=== PATIENT | male | born 1945 | race Caucasian/White ===

== ENCOUNTER 2020-12-26 07:45 | Outpatient (REF) | payer MEDICARE, SELFPAY ==
[2020-12-26 11:56] LABS: Hematocrit 43.5 % (42-52); Hemoglobin 14.6 g/dl (14.0-18.0); Mean Corpuscular HGB Conc 33.6 g/dl (31.0-36.0); Mean Corpuscular Volume 98.4 fL (80-98); Mean Platelet Volume 11.2 fL (9.4-12.4); Platelet Count 206 X10*3/uL (160-400); Red Blood Count 4.42 X10*6/uL (4.60-5.80); Red Cell Distribution Width 12.8 % (11.0-16.0); White Blood Count 6.7 X10*3/uL (4.8-10.8)
[2020-12-26 12:03] LABS: Alanine Aminotransferase 18 U/L (0-40); Albumin Level 4.2 g/dL (3.5-5.0); Alkaline Phosphatase 62 U/L (39-117); Anion Gap 13 (12-20); Aspartate Amino Transferase 17 U/L (5-37); Bilirubin Total 1.2 mg/dL (0.0-1.0); Blood Urea Nitrogen 16 mg/dL (9-16); Calcium 9.6 mg/dL (8.4-10.2); Carbon Dioxide 27 mmol/L (22-29); Chloride 104 mmol/L (96-108); Cholesterol 130 mg/dL; Estimated Glomerular Filt Rate > 60; Glucose Fasting 102 mg/dL (60-99); HDL Cholesterol 48 mg/dL; LDL Cholesterol Calculated 67 mg/dl; Potassium 4.5 mmol/L (3.3-5.1); Sodium 139 mmol/L (135-145); Total Protein 6.8 g/dL (6.5-8.0); Triglycerides 76 mg/dL
[2020-12-26 12:37] LABS: Folate 14.9 ng/mL (> or = 4.0); Vitamin B12 626 pg/mL (200-900)
== END 2020-12-26 07:46 | disposition home or self-care (01) ==
LOC: HO.HMGCLDS 07:45
PROVIDERS: PCP Internal Medicine; Visit Provider Internal Medicine
DX: Z00.00 Encounter for general adult medical examination without abnormal findings (principal); Z12.5 Encounter for screening for malignant neoplasm of prostate; E53.8 Deficiency of other specified B group vitamins; E78.5 Hyperlipidemia, unspecified; I10 Essential (primary) hypertension
CPT/HCPCS: 36415; 80053; 80061; 82607; 82746; 84153; 85027

== ENCOUNTER 2022-04-03 08:42 | Outpatient (REF) | payer MEDICARE, SELFPAY ==
[2022-04-03 11:31] LABS: MANUAL DIFF FLAG NO
[2022-04-03 11:44] LABS: Basophils Absolute Auto 0.1 X10*3/uL (0.0-0.2); Basophils Percent Auto 0.9 % (0-2); Eosinophils Absolute Auto 0.5 X10*3/uL (0.0-0.4); Eosinophils Percent Auto 5.3 % (0-4); Hematocrit 42.2 % (42.0-52.0); Hemoglobin 13.9 g/dl (14.0-18.0); Imm Gran Abs Auto 0.02 X10*3/uL (0.00-0.03); Imm Gran Pct Auto 0.2 % (0.0-0.4); Lymphocytes Absolute Auto 1.3 X10*3/uL (1.2-4.9); Lymphocytes Percent Auto 15.2 % (20-40); Mean Corpuscular HGB Conc 32.9 g/dl (31.0-36.0); Mean Corpuscular Hemoglobin 32.6 pg (27.0-33.0); Mean Corpuscular Volume 98.8 fL (80.0-98.0); Mean Platelet Volume 11.3 fL (9.4-12.4); Monocytes Absolute Auto 0.6 X10*3/uL (0.1-1.2); Monocytes Percent Auto 7.3 % (2-11); Neutrophils Absolute Auto 6.2 x10*3/uL (2.0-8.3); Neutrophils Percent Auto 71.1 % (45-73); Platelet Count 210 X10*3/uL (160-400); Red Blood Count 4.27 X10*6/uL (4.60-5.80); Red Cell Distribution Width 13.2 % (11.0-16.0); White Blood Count 8.7 X10*3/uL (4.8-10.8)
[2022-04-03 12:02] LABS: Alanine Aminotransferase 16 U/L (0-40); Albumin Level 3.9 g/dL (3.5-5.0); Alkaline Phosphatase 65 U/L (39-117); Anion Gap 10 (12-20); Aspartate Amino Transferase 17 U/L (5-37); Blood Urea Nitrogen 14 mg/dL (9-16); Calcium 9.4 mg/dL (8.4-10.2); Carbon Dioxide 30 mmol/L (22-29); Chloride 103 mmol/L (96-108); Cholesterol 134 mg/dL; Estimated Glomerular Filt Rate > 60; Glucose Fasting 100 mg/dL (60-99); HDL Cholesterol 53 mg/dL; LDL Cholesterol Calculated 66 mg/dl; Potassium 4.2 mmol/L (3.3-5.1); Sodium 139 mmol/L (135-145); Total Protein 6.2 g/dL (6.5-8.0); Triglycerides 76 mg/dL
[2022-04-03 12:20] LABS: PSA,Total (Free>4and<10) 2.99 ng/mL (0.00-4.00)
[2022-04-03 12:32] LABS: Folate 15.8 ng/mL (> or = 4.0); Vitamin B12 475 pg/mL (200-900)
== END 2022-04-03 08:43 | disposition home or self-care (01) ==
LOC: HO.HMGCLDS 08:42
PROVIDERS: PCP Internal Medicine; Visit Provider Internal Medicine
DX: Z00.00 Encounter for general adult medical examination without abnormal findings (principal); E53.8 Deficiency of other specified B group vitamins; E78.5 Hyperlipidemia, unspecified; I10 Essential (primary) hypertension; Z12.5 Encounter for screening for malignant neoplasm of prostate
CPT/HCPCS: 36415; 80053; 80061; 82607; 82746; 84153; 85025

== ENCOUNTER 2023-03-31 10:53 | Outpatient (REF) | payer MEDICARE, SELFPAY ==
[2023-03-31 13:36] LABS: MANUAL DIFF FLAG NO
[2023-03-31 14:02] LABS: Basophils Absolute Auto 0.1 X10*3/uL (0.0-0.2); Basophils Percent Auto 0.7 % (0-2); Eosinophils Absolute Auto 0.5 X10*3/uL (0.0-0.4); Eosinophils Percent Auto 6.6 % (0-4); Hematocrit 42.6 % (42.0-52.0); Hemoglobin 14.1 g/dl (14.0-18.0); Imm Gran Abs Auto 0.02 X10*3/uL (0.00-0.03); Imm Gran Pct Auto 0.3 % (0.0-0.4); Lymphocytes Absolute Auto 1.4 X10*3/uL (1.2-4.9); Lymphocytes Percent Auto 19.9 % (20-40); Mean Corpuscular HGB Conc 33.1 g/dl (31.0-36.0); Mean Corpuscular Hemoglobin 33.5 pg (27.0-33.0); Mean Corpuscular Volume 101.2 fL (80.0-98.0); Mean Platelet Volume 11.8 fL (9.4-12.4); Monocytes Absolute Auto 0.7 X10*3/uL (0.1-1.2); Monocytes Percent Auto 9.2 % (2-11); Neutrophils Absolute Auto 4.6 x10*3/uL (2.0-8.3); Neutrophils Percent Auto 63.3 % (45-73); Platelet Count 223 X10*3/uL (160-400); Red Blood Count 4.21 X10*6/uL (4.60-5.80); White Blood Count 7.3 X10*3/uL (4.8-10.8)
[2023-03-31 14:43] LABS: PSA,Total (Free>4and<10) 2.15 ng/mL (0.00-4.00)
[2023-03-31 14:57] LABS: Folate 10.5 ng/mL (> or = 4.0); Vitamin B12 561 pg/mL (200-900)
[2023-03-31 15:05] LABS: Alanine Aminotransferase 17 U/L (0-40); Albumin Level 3.9 g/dL (3.5-5.0); Alkaline Phosphatase 75 U/L (39-117); Anion Gap 9 (12-20); Aspartate Amino Transferase 18 U/L (5-37); Bilirubin Total 0.8 mg/dL (0.0-1.0); Blood Urea Nitrogen 15 mg/dL (9-16); Calcium 9.3 mg/dL (8.4-10.2); Carbon Dioxide 29 mmol/L (22-29); Chloride 104 mmol/L (96-108); Cholesterol 133 mg/dL (<200); Estimated Glomerular Filt Rate > 60; Glucose Fasting 110 mg/dL (60-99); HDL Cholesterol 57 mg/dL (>40); LDL Cholesterol Calculated 68 mg/dL (<100); Potassium 4.4 mmol/L (3.3-5.1); Sodium 138 mmol/L (135-145); TSH reflex Free T4 1.43 uIU/mL (0.32-4.0); Total Protein 6.6 g/dL (6.5-8.0); Triglycerides 40 mg/dL (<150); Vitamin D 25-OH Total 37.7 ng/mL (>30)
== END 2023-03-31 10:54 | disposition home or self-care (01) ==
LOC: HO.HMGCLDS 10:53
PROVIDERS: PCP Internal Medicine; Visit Provider Internal Medicine
DX: Z00.00 Encounter for general adult medical examination without abnormal findings (principal); I10 Essential (primary) hypertension; E78.5 Hyperlipidemia, unspecified; E53.8 Deficiency of other specified B group vitamins; E55.9 Vitamin D deficiency, unspecified; R41.3 Other amnesia; Z12.5 Encounter for screening for malignant neoplasm of prostate
CPT/HCPCS: 36415; 80053; 80061; 82306; 82607; 82746; 84153; 84443; 85025

== ENCOUNTER 2023-04-02 08:47 | Outpatient (AMB) | payer MEDICARE, SELFPAY ==
[2023-04-02 08:56] VITALS: BP 120/80; PULSE 64; O2SAT 98; BMI 25.8
--- NOTE | 2023-04-02 08:58 | A.OFFVIS_ITS ---
Intake Vital Signs 04/02/23 08:56 04/02/23 09:04 Height 5 ft 9 in Weight 175 lb BMI 25.8 25.8 BP 120/80 Blood Pressure Location Lt brachial Position Sitting Pulse 64 Pulse Source Pulse Oximeter Pulse Oximetry (%) 98 Oxygen Delivery Method Room Air Intake Visit Reasons: SWV [id number] Allergies No Known Allergies Allergy (Verified 04/02/23 08:59) Medication List - Last Reconciled 04/02/23 by Thea Navas MD atorvastatin 20 mg PO BEDTIME latanoprost 0.005% 1 drp ophthalmic (eye) BEDTIME multivitamin 1 tab PO DAILY olmesartan 40 mg PO DAILY HPI SWV G4039 HPI Details Patient presents for annual visit. He retired last fall and has been adjusting to the snf. 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 He denies change in appetite or activity level or suicidal ideation but has been trying to find a new meaning in his life. Initiated the conversation about Advanced Directives. Advanced Directives help? patients prepare for current and future decisions about their medical treatment? and place of care. Discussed with patient that it is a process where a patients? current condition and prognosis are reviewed, their wishes for information? regarding their illness are elicited, and likely medical dilemmas are presented? and options discussed. The form can be amended as needed, reviewed yearly and? make changes as needed IPPE/AWV ? year old presents? for her ? Annual? Wellness Visit, initial visit.? Medical / Social History Reviewed? Past Medical History ?Yes? . ? [place]? of Care / Care Team list updated ?Yes . ? Surgical/Hospitalization? History ?Yes . ? Current Medications? (including OTC and supplements) ?Yes . ? Family History ?Yes? . ? Tobacco? Control form ?Yes . ? AUDIT-C (Alcohol use) form? ?Yes . ? Illicit drug use in Social? History ?Yes . ? Current diagnosis of? depression? ?No ? Appropriate PHQ2/PHQ9? completed ?Yes . ? Data entered by ?Medical? [employer] and reviewed by provider ? Fall Risk ? Fall? History? Have you had any falls with? injury in the past year? ?No . ? Have you had two or more? falls in the past year? ?No . ? Fall Risk Assessment: ?No? falls in the past year . ? HRA filled out by? the patient, reviewed by Provider and scanned. ? IPPE/AWV ? Balance? [place]? ?Yes . ? Tandem? walk ?Yes . ? Walk and? Turn ?Yes . ? Rise from? sit to stand ?Yes . ?Vision? Corrective? lens ?Yes ? Vision? screen ? Up-to-date, has an appointment [] for vision? screening and glaucoma screening ?Hearing? Whisper? test ?pass .? Initiated the conversation about Advanced Directives. Advanced Directives help? patients prepare for current and future decisions about their medical treatment? and place of care. Discussed with patient that it is a process where a patients? current condition and prognosis are reviewed, their wishes for information? regarding their illness are elicited, and likely medical dilemmas are presented? and options discussed. The form can be amended as needed, reviewed yearly and? make changes as needed Written? Plan?Completed. See Patient? Documents. [facility] Medical History Annual physical exam HTN (hypertension) Hyperlipidemia Vitamin B 12 deficiency Surgical History H/O colonoscopy Family History Father Hodgkin disease Mother No problems noted. 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/[place] Housing: House Patient Tobacco Use Status: Former Tobacco user (50 years ago) e-Cigarette/Vaping Use: Never Used Current occupational status: retired Cognitive needs: No Hearing needs: No Vision needs: No Questionnaire Medicare Wellness Checkup [age] What gender do you identify with?: male During the past 4 weeks, how much have you been bothered by emotional problems such as feeling anxious, depressed, irritable, sad or downhearted, and blue?: slightly During the past 4 weeks, has your physical & emotional health limited your social activities with family, friends, neighbors, or groups?: slightly During the past 4 weeks, how much bodily pain have you generally had?: very mild pain During the past 4 weeks, was someone available to help you if you needed & wanted help?: yes, quite a bit During the past 4 weeks, what was the hardest physical activity you could do for at least 2 minutes?: very heavy Can you get to places out of walking distance without help? (For eg., can you travel alone on buses, taxis or drive your car?): Yes Can you go shopping for groceries or clothes without someone's help?: Yes Can you prepare your own meals?: Yes Can you do your housework without help?: Yes Because of any health problems, do you need the help of another person with your personal care needs such as eating, bathing, dressing or getting around the house?: No Can you handle your own money without help?: Yes During the past 4 weeks, how would you rate your health in general?: very good During the past 4 weeks how have things been going for you?: pretty well Are you having difficulties driving your car?: no Do you always fasten your seat belt when you are in a car?: yes, usually During past 4 weeks, have you been bothered by the following: never: Falling or dizzy when standing up, Sexual problems?, Teeth or denture problems? and Problems using the telephone? and seldom: Trouble eating well? and Tiredness or fatigue? Have you fallen 2 or more times in the past year?: No Are you afraid of falling?: No Are you a smoker?: no During the past 4 weeks, how many drinks of wine, beer, or other alcoholic beverages did you have?: 10 or more per week Do you exercise for about 20 minutes 3 or more times a week?: yes, some of the time Have you been given information to help with the following?: no: Hazards in your house that might hurt you? and no: Keeping track of your medications? How often do you have trouble taking medicines the way you have been told to take them?: I seldom take medications as prescribed How confident are you that you can control & manage most of your health problems?: very confident What is your race?: White Mini Mental State Exam (MMSE) Orientation What is the (year) (season) (date) (day) (month)?: year, season, date, day and month Where are we (state) (county) (town or city) (hospital) (floor)?: state, county, town or city, hospital/clinic and floor Registration Name of 3 unrelated objects clearly and slowly, then ask patient to repeat all 3 of them. (1st repeat determines score. Make sure they can repeat all three): object 1, object 2 and object 3 Attention & Calculation (CHOOSE ONE) Spell WORLD backwards (DLROW): 5 letters Recall Ask patient to repeat the 3 items from question #3.: object 1, object 2 and object 3 Language Show patient a wristwatch & ask what it is. Repeat for pencil.: watch and pencil Ask the patient to repeat the phrase 'No ifs, ands, or buts' after you.: correct Ask the patient to 'take a piece of paper with their right hand' 'fold paper in half' 'place paper on floor': take paper in right hand, fold paper in half and place paper on floor Print the sentence 'CLOSE YOUR EYES' on a piece. If patient actually closes eyes then score.: followed written direction Give patient a blank piece of paper & ask to write a sentence. Score if it contains a noun & verb.: sentence contains subject and verb Ask patient to copy figure of intersecting pentagons exactly. Score if all 10 angles & 2 intersects are included.: all 10 angles present & 2 are intersected Score Score: 30 Activity of Daily Living Bathing - sponge bath, tub bath or shower: receives no assistance (gets in/out by self, if usual bathing means Dressing - getting clothes from closets & drawers, including inner/outer garments & fasteners.: gets clothes & gets completely dressed without help Toileting - going to the 'toilet room' for urine/bowel elimination & cleaning self/arranging clothes: goes to toilet room, cleans self, arranges clothes without help Transfer: moves in & out of bed and chair without help (may use support object) Continence: controls urination/bowel movements completely by self Feeding: feeds self without help Total Score: 0 Information obtained from: patient Using telephone: independent Traveling: independent Shopping: independent Preparing meals: independent Housework: independent Taking medicine: independent Managing money: independent PHQ-9 Over the last 2 weeks, how often have you been bothered by any of the following problems? 1. Little interest or pleasure in doing things: several days 2. Feeling down, depressed, or hopeless: several days 3. Trouble falling or staying asleep, or sleeping too much: several days 4. Feeling tired or having little energy: several days 5. Poor appetite or overeating: several days 6. Feeling bad about yourself - or that you are a failure or have let yourself or your family down: several days 7. Trouble concentrating on things, such as reading the newspaper or watching television: several days 8. Moving or speaking so slowly that other people could have noticed. Or the opposite - being so fidgety or restless that you have been moving around a lot more than usual: several days 9. Thoughts that you would be better off or of hurting yourself in some way: several days Total score: 9 Depression Screening Interpretation: Positive Depression Screening Done: Yes Source: Developed by Drs. Saleem Madrigal, Nitza Romeo, Lloyd Carmen and colleagues, with an educational terry from [email or web address]. Review of Systems Const All systems reviewed & are unremarkable except as noted in HPI and below Reports no additional complaints Eyes Reports no additional complaints ENT Reports no additional complaints Card Reports no additional complaints Resp Reports no additional complaints GI Reports no additional complaints Reports no additional complaints Physical Exam Vital Signs: Last Vital Signs Pulse 64 04/02/23 08:56 BP 120/80 04/02/23 08:56 Pulse Ox 98 04/02/23 08:56 Oxygen Delivery Method Room Air 04/02/23 08:56 BMI result Body Mass Index 25.8 Const General: comfortable HEENT Head: Yes normal to inspection Ears: hearing grossly normal bilaterally General nose exam: Normal external nose present Eyes General: appearance normal, both eyes and all related structures Neck Neck: Yes no lymphadenopathy and Yes supple Resp Effort & Inspection: normal respiratory effort Auscultation: clear to auscultation bilaterally Cardio Rhythm: regular rhythm Heart sounds: S1 normal heart sound present and S2 normal heart sound present GI Inspection: Yes normal to inspection Palpation (GI): Soft to palpation Percussion: Yes normal to percussion Auscultation: normal bowel sounds Extrem General: Yes no clubbing, cyanosis or edema Assessment & Plan Assessment & Plan (1) Hyperlipidemia: Code(s): E78.5 - Hyperlipidemia, unspecified Plan: Continue statin (2) HTN (hypertension): Code(s): I10 - Essential (primary) hypertension Plan: Continue olmesartan (3) Annual physical exam: Code(s): Z00.00 - Encounter for general adult medical examination without abnormal findings Plan: Well-balanced diet regular physical activity social interaction discussed with the patient. Follow-up in 6 months with a fasting labs before Orders: Orders Comprehensive [place]. Panel Fast 6 Months I10 - Essential (primary) hypertension Hemoglobin A1c 6 Months I10 - Essential (primary) hypertension Quality Reporting (2019) Depression/Bipolar (159/160/161/177) PHQ-9: Total score: 9 Coding Level of Care Code Medicare Subsequent (G0439) Diagnoses Hyperlipidemia E78.5 HTN (hypertension) I10 Annual physical exam Z00.00 CPT Codes Advance Care Planning - Advance Care Planning discussion: On file, no changes ([id number]) Advance Care Planning - Time spent: 1-15 minutes, on File ([id number]) Advance Care Planning Advance Care Planning discussion: On file, no changes Forms completed: Health Care Proxy Time spent: 1-15 minutes, on File
[2023-04-02 09:04] VITALS: BMI 25.8
== END 2023-04-02 09:39 | disposition home or self-care (01) ==
PROVIDERS: PCP Internal Medicine; Visit Provider Internal Medicine
DX: Z00.00 Encounter for general adult medical examination without abnormal findings (principal); E78.5 Hyperlipidemia, unspecified; I10 Essential (primary) hypertension
CPT/HCPCS: 1123F; G0439

== ENCOUNTER 2023-09-16 10:03 | Outpatient (AMB) | payer MEDICARE, SELFPAY ==
[2023-09-16 10:17] VITALS: BP 124/64; PULSE 78; O2SAT 96; BMI 26.1
--- NOTE | 2023-09-16 10:17 | A.OFFPC_ITS ---
Vital Signs 09/16/23 10:17 Height 5 ft 9 in Weight 177 lb BMI 26.1 BP 124/64 Blood Pressure Location Lt brachial Position Sitting Pulse 78 Pulse Source Pulse Oximeter Pulse Oximetry (%) 96 Oxygen Delivery Method Room Air Intake Visit Reasons: 6 Month F/U Intake Note: Pt is here today for 6 months follow up visit. Allergies No Known Allergies Allergy (Verified 09/16/23 10:17) Medication List - Last Reconciled 09/16/23 by Thea Navas MD atorvastatin 20 mg PO BEDTIME latanoprost 0.005% 1 drp ophthalmic (eye) BEDTIME multivitamin 1 tab PO DAILY olmesartan 40 mg PO DAILY Tobacco use date assessed: 09/16/23 Fall risk assessment: No Falls in past year Last assessed Fall Risk: 09/16/23 Dental Screening Dental Screen Date: 09/16/23 Did you have a dental visit in the last 12 months?: Yes Did you have a dental problem in the last 6 months where you did not have access to dental care?: No Was dental information given to patient?: Patient has dentist HPI 6 Month F/U HPI Details Pt presents for HTN and hyperlipid, stable on meds.Pt c/o intermittent constipation improved with Metamucil. Pt denies hematochezia and melena. Pt has been eating less fiber and exercising less. [facility] Medical History Vitamin B 12 deficiency Annual physical exam Hyperlipidemia HTN (hypertension) Surgical History H/O colonoscopy Family History Father Hodgkin disease Mother No problems noted. 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 How often do you have a drink containing alcohol?: 2-4 times a month 2. How many drinks containing alcohol do you have on a typical day when you are drinking?: 1 or 2 3. How often do you have six or more drinks on one occasion?: Never Total Score: 2 Review of Systems Const All systems reviewed & are unremarkable except as noted in HPI and below ENT Reports no additional complaints Resp Reports no additional complaints GI Reports no additional complaints Reports no additional complaints Musc Reports no additional complaints Physical exam (Primary Care) Vital Signs: Last Vital Signs Pulse 78 09/16/23 10:17 BP 124/64 09/16/23 10:17 Pulse Ox 96 09/16/23 10:17 Oxygen Delivery Method Room Air 09/16/23 10:17 BMI result Body Mass Index 26.1 Tobacco/Smoking Status: Tobacco use Status Tobacco use date assessed 09/16/23 09/16/23 10:18 Patient Tobacco Use Status Former Tobacco user (50 09/16/23 10:18 years ago) e-Cigarette/Vaping Use Never Used 09/16/23 10:18 Const General: no acute distress HENMT Ears: hearing grossly normal bilaterally Eyes General: appearance normal, both eyes and all related structures Resp Effort & Inspection: normal respiratory effort Auscultation: clear to auscultation bilaterally Cardio Rhythm: regular rhythm Heart sounds: S1 normal heart sound present and S2 normal heart sound present GI Inspection: Yes normal to inspection Palpation (GI): Soft to palpation Percussion: Yes normal to percussion Auscultation: normal bowel sounds Assessment and Plan Assessment & Plan (1) HTN (hypertension): Code(s): I10 - Essential (primary) hypertension Plan: cont Olmesartan (2) Hyperlipidemia: Code(s): E78.5 - Hyperlipidemia, unspecified Plan: cont Lipitor (3) Constipation: Code(s): K59.00 - Constipation, unspecified Plan: increase fiber and fluid intake , check Cologuard Orders: Referrals Cologuard Test Z12.11 - Encounter for screening for malignant neoplasm of colon, Z12.12 - Encounter for screening for malignant neoplasm of rectum Coding Level of Care Code Est Pt Level 4 (67681) Diagnoses HTN (hypertension) I10 Hyperlipidemia E78.5 Constipation K59.00
== END 2023-09-16 11:30 | disposition home or self-care (01) ==
PROVIDERS: PCP Internal Medicine; Visit Provider Internal Medicine
DX: I10 Essential (primary) hypertension (principal); E78.5 Hyperlipidemia, unspecified; K59.00 Constipation, unspecified
CPT/HCPCS: 99214

== ENCOUNTER 2023-11-12 11:05 | Outpatient (AMB) | payer MEDICARE, SELFPAY ==
[2023-11-12 11:28] VITALS: BP 106/66; PULSE 69; O2SAT 97; BMI 25.1
--- NOTE | 2023-11-12 11:28 | MHC.PC.OV ---
Vital Signs 11/12/23 11:28 Height 5 ft 9 in Weight 170 lb BMI 25.1 BP 106/66 Blood Pressure Location Lt brachial Position Sitting Pulse 69 Pulse Source Pulse Oximeter Pulse Oximetry (%) 97 Oxygen Delivery Method Room Air Intake Visit Reasons: Test Follow Up Intake Note: Pt is here todya for a follow up visit on cologuard results. Allergies No Known Allergies Allergy (Verified 11/12/23 11:42) Medication List - Last Reconciled 11/12/23 by Thea Navas MD atorvastatin 20 mg PO BEDTIME latanoprost 0.005% 1 drp ophthalmic (eye) BEDTIME multivitamin 1 tab PO DAILY olmesartan 40 mg PO DAILY Tobacco use date assessed: 09/16/23 Dental Screening Dental Screen Date: 09/16/23 HPI Test Follow Up HPI Details PATIENT PRESENTS FOR THE FOLLOW-UP OF HYPERTENSION HYPERLIPIDEMIA CONTROLLED ON CURRENT MEDICATIONS. He tested positive on Cologuard and is scheduled to have colonoscopy. He complains of constipation getting worse but denies hematochezia melena [facility] Medical History Vitamin B 12 deficiency Annual physical exam Hyperlipidemia HTN (hypertension) Surgical History H/O colonoscopy Family History Father Hodgkin disease Mother No problems noted. 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 1. Little interest or pleasure in doing things: more than half the days 2. Feeling down, depressed, or hopeless: several days 3. Trouble falling or staying asleep, or sleeping too much: several days 4. Feeling tired or having little energy: several days 5. Poor appetite or overeating: not at all 6. Feeling bad about yourself - or that you are a failure or have let yourself or your family down: several days 7. Trouble concentrating on things, such as reading the newspaper or watching television: not at all 8. Moving or speaking so slowly that other people could have noticed. Or the opposite - being so fidgety or restless that you have been moving around a lot more than usual: several days 9. Thoughts that you would be better off or of hurting yourself in some way: not at all Total score: 7 Depression Screening Interpretation: Negative Depression Screening Done: Yes 14623 - PHQ-9 Billing: Yes Source: Developed by Drs. Saleem Madrigal, Nitza Romeo, Lloyd Carmen and colleagues, with an educational terry from [employer]. Thrive Questionnaire Date Thrive assessed: 11/05/23 I am a: Patient What is your living situation today?: I have a steady place to live Within the past 12 months, did the food you bought not last and you didn't have the money to get more?: Never true Within the past 12 months, did you worry whether your food would run out before you got money to buy more?: Never true Do you have trouble paying for medicines?: No Do you have trouble getting transportation to medical appointments?: No Do you have trouble paying your heating and electricity bill?: No Do you have trouble taking care of your child, family member or friend?: No Do you have trouble with day-to-day activities such as bathing, preparing meals, shopping, managing finances, etc.?: No Are you currently unemployed and looking for a job?: No Are you interested in more education?: No Please select the resources that you would like help with: None Currently or been in a relationship where the following occur: No concerns reported THRIVE Score: 0 AUDIT C Alcohol Use Questionnaire (AUDIT-C) 1. How often do you have a drink containing alcohol?: 4 or more times a week 2. How many drinks containing alcohol do you have on a typical day when you are drinking?: 1 or 2 3. How often do you have six or more drinks on one occasion?: Never Total Score: 4 MARJORIE-7 AMB Questionnaire MARJORIE-7 Feeling nervous, anxious, or on edge: 3 = Nearly every day Not being able to stop or control worryin = Nearly every day Worrying too much about different things: 3 = Nearly every day Trouble relaxin = Nearly every day Being so restless that it is hard to sit still: 1 = Several days Becoming easily annoyed or irritable: 1 = Several days Feeling afraid as if something awful might happen: 1 = Several days Total MARJORIE-7 score (0-4 normal; 5-9 mild; 10-14 moderate; 15-21 severe): 15 Source: Developed by Drs. Saleem Madrigal, Nitza Romeo, Lloyd Carmen and colleagues, with an educational terry from [employer]. Review of Systems Const All systems reviewed & are unremarkable except as noted in HPI and below Eyes Reports no additional complaints Card Reports no additional complaints Resp Reports no additional complaints GI Reports no additional complaints Reports no additional complaints Physical exam (Primary Care) Vital Signs: Last Vital Signs Pulse 69 11/12/23 11:28 BP 106/66 11/12/23 11:28 Pulse Ox 97 11/12/23 11:28 Oxygen Delivery Method Room Air 11/12/23 11:28 BMI result Body Mass Index 25.1 Tobacco/Smoking Status: Tobacco use Status Tobacco use date assessed 09/16/23 11/12/23 11:28 Patient Tobacco Use Status Former Tobacco user (50 11/12/23 11:28 years ago) e-Cigarette/Vaping Use Never Used 11/12/23 11:28 PHQ-9: PHQ-9 Score PHQ-9: Total score 7 11/12/23 11:28 Depression Screening Interpretation: Negative Thrive Assessment: Date of Thrive Assessment Date Thrive assessed 11/05/23 11/12/23 11:28 Currently or been in a relationship where the following occur: No concerns reported Const General: no acute distress HENMT Head: Yes normal to inspection Eyes General: appearance normal, both eyes and all related structures Resp Effort & Inspection: normal respiratory effort Auscultation: clear to auscultation bilaterally Cardio Rhythm: regular rhythm Heart sounds: S1 normal heart sound present and S2 normal heart sound present GI Inspection: Yes normal to inspection Palpation (GI): Soft to palpation Percussion: Yes normal to percussion Auscultation: normal bowel sounds Assessment and Plan Assessment & Plan (1) Positive colorectal cancer screening using Cologuard test: Code(s): R19.5 - Other fecal abnormalities Plan: Patient will have colonoscopy (2) Constipation: Code(s): K59.00 - Constipation, unspecified Plan: Increasing fiber intake discussed with the patient he will try Colace followed by MiraLax as needed. (3) HTN (hypertension): Code(s): I10 - Essential (primary) hypertension Plan: Continue current medications Coding Level of Care Code Est Pt Level 4 (40280) Diagnoses Positive colorectal cancer screening using Cologuard test R19.5 Constipation K59.00 HTN (hypertension) I10
== END 2023-11-12 13:21 | disposition home or self-care (01) ==
PROVIDERS: PCP Internal Medicine; Visit Provider Internal Medicine
DX: R19.5 Other fecal abnormalities (principal); K59.00 Constipation, unspecified; I10 Essential (primary) hypertension
CPT/HCPCS: 99214

== ENCOUNTER 2024-01-13 12:46 | Outpatient (AMB) | payer MEDICARE, SELFPAY ==
[2024-01-13 12:54] VITALS: BP 116/59; PULSE 76; BMI 25.1
--- NOTE | 2024-01-13 12:54 | A.OFFVIS_ITS ---
Vital Signs 01/13/24 12:54 Height 5 ft 9 in Weight 169 lb 12.095 oz BMI 25.1 BP 116/59 L Blood Pressure Location Lt brachial Position Sitting Pulse 76 Intake Visit Reasons: positive cologuard Intake Note: Kevin presents in the office as a new patient for a Pos Cologuard. CC: He states that he has had on and off again constipation States he takes metamucil when he needs to and it seems to regulate him and takes OTC laxative but no stomach pains. Help Desk Coordinator Required: No Allergies No Known Allergies Allergy (Verified 01/13/24 13:17) HPI Comments Details: 78 y.o M with PMH who is here for positive cologuard. Pt reports changes in bowel habits that started in 2020 but worsened over the last 6 months. Noticed stools were thinner. At one point also developed severe constipation. Sometimes also has a R upper side fleeting pain. Occ has noticed blood in stool geraldine while straining. Reports fatigue, decreased stamina for around the same duration. Also thinks has lost appetite. Thinks clothes are a bit though no significant weight loss in the EMR. Last colo was 20 years ago. PCP ordered cologuard in September which was POSITIVE. No fam hx of CRC. Mat grandmother may have had stomach ca. [facility] Medical History Vitamin B 12 deficiency Annual physical exam Hyperlipidemia HTN (hypertension) Surgical History H/O colonoscopy Family History Father Hodgkin disease Mother No problems noted. 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 in [facility]/[place] Housing: House Patient Tobacco Use Status: Former Tobacco user e-Cigarette/Vaping Use: Never Used service: No Current occupational status: retired Cognitive needs: No Hearing needs: No Vision needs: No Review of Systems Const All systems reviewed & are unremarkable except as noted in HPI and below Physical Exam Vital Signs: Last Vital Signs Pulse 76 01/13/24 12:54 BP 116/59 L 01/13/24 12:54 BMI result Body Mass Index 25.1 No apparent distress Nonicteric Abdomen soft, nondistended Alert and oriented x3, normal gait Assessment & Plan Assessment & Plan (1) Unintentional weight change: Code(s): R68.89 - Other general symptoms and signs Category: Medical (2) Change in bowel habit: Code(s): R19.4 - Change in bowel habit Category: Medical (3) Fatigue: Code(s): R53.83 - Other fatigue Category: Medical (4) Positive colorectal cancer screening using Cologuard test: Code(s): R19.5 - Other fecal abnormalities Category: Medical Plan Reviewed with the pt that while cologuard not validated to be used in pts over 75 with recent change in bowel habits, needs a colo now anyway to i) follow up on cologuard and ii) evaluate change in bowel habits with unintentional weight loss. An EGD will also be booked alongside for upper GI eval given sx of low appetite, RUQ pain and fam hx of stomach ca. Plan: - EGD/colo to be booked - PEG prep Rxed and instructions reviewed - Labs ordered for prelim work up of fatigue - CT Abd/pel with IV contrast Follow up after procedures Orders: Orders Complete Blood Count no Diff Today R53.83 - Other fatigue Ferritin Today R53.83 - Other fatigue TSH reflex Free T4 Today R53.83 - Other fatigue Vitamin D 25-OH Total Today R53.83 - Other fatigue CT abdomen pelvis w IV con Today R19.4 - Change in bowel habit, R19.5 - Other fecal abnormalities, R68.89 - Other general symptoms and signs IRON PROFILE Today R53.83 - Other fatigue Medications: New peg 3350-electrolytes 236-22.74-6.74 -5.86 gram (Golytely) as per split prep instructions, until fecal effluent is clear 240 mL PO Q10M 4,000 mL 0RF colonoscopy Coding Level of Care Code New Pt Level 4 (30175) Complex EM visit Add On G2211 Diagnoses Unintentional weight change R68.89 Change in bowel habit R19.4 Fatigue R53.83 Positive colorectal cancer screening using Cologuard test R19.5
== END 2024-01-13 14:04 | disposition home or self-care (01) ==
LOC: HO.HGI 12:47
PROVIDERS: PCP Internal Medicine; Visit Provider Internal Medicine
DX: R68.89 Other general symptoms and signs (principal); R19.4 Change in bowel habit; R53.83 Other fatigue; R19.5 Other fecal abnormalities
CPT/HCPCS: 99204; G2211

== ENCOUNTER 2024-01-13 12:46 | Outpatient (REF) | payer MEDICARE, SELFPAY ==
[2024-01-13 14:39] LABS: Hematocrit 42.2 % (42.0-52.0); Mean Corpuscular HGB Conc 33.2 g/dl (31.0-36.0); Mean Corpuscular Volume 99.5 fL (80.0-98.0); Mean Platelet Volume 10.7 fL (9.4-12.4); Platelet Count 275 X10*3/uL (160-400); Red Blood Count 4.24 X10*6/uL (4.60-5.80); Red Cell Distribution Width 13.1 % (11.0-16.0); White Blood Count 9.7 X10*3/uL (4.8-10.8)
[2024-01-13 15:13] LABS: Iron 111 mcg/dL (45-160); Percent Iron Saturation 42 % (15-50); Total Iron Binding Capacity 265 mcg/dL (228-428); Unsaturated Iron Binding 154 ug/dL
[2024-01-13 15:31] LABS: Ferritin 202 ng/mL (20-250); TSH reflex Free T4 1.51 uIU/mL (0.32-4.0); Vitamin D 25-OH Total 33.9 ng/mL (>30)
== END 2024-01-13 12:47 | disposition home or self-care (01) ==
LOC: HO.LAB 12:46
PROVIDERS: PCP Internal Medicine; Visit Provider Internal Medicine
DX: R53.83 Other fatigue (principal); R68.89 Other general symptoms and signs; R19.4 Change in bowel habit; R19.5 Other fecal abnormalities
CPT/HCPCS: 36415; 82306; 82728; 83540; 84443; 85027; 99202

== ENCOUNTER 2024-03-16 13:49 | Outpatient (REF) | payer MEDICARE, SELFPAY ==
--- NOTE | ~2024-03-16 | CT_ITS ---
CLINICAL HISTORY: R19.5 - Other fecal abnormalities CT abdomen and pelvis with contrast Comparison: None Findings: The lung bases are clear. There are bilateral thin-walled homogeneous renal cortical lesions, possible Bosniak 1 cysts. Consider further evaluation with nonemergent renal ultrasound for confirmation. Solid organs are otherwise within normal limits. There is a gallstone with the gallbladder otherwise is unremarkable. There is no biliary tract dilatation. No renal stones. No bowel obstruction, pneumoperitoneum, or pneumatosis. There are diverticula in the descending and sigmoid colon without imaging evidence of diverticulitis. Pelvic contents unremarkable. Normal appendix. The bones are intact. IMPRESSION: No acute findings. This document has been electronically signed by: Warren Castillo MD on 03/18/2024 07:22:11
[2024-03-16 14:43] LABS: Anion Gap 10 (12-20); Blood Urea Nitrogen 17 mg/dL (9-16); Calcium 9.5 mg/dL (8.4-10.2); Carbon Dioxide 28 mmol/L (22-29); Chloride 108 mmol/L (96-108); Estimated Glomerular Filt Rate > 60; Glucose Random 103 mg/dL (60-115); Potassium 4.6 mmol/L (3.3-5.1); Sodium 141 mmol/L (135-145)
[2024-03-16] MEDS: Barium Sulfate Oral (Berry) 450 ML ORAL.SUSP 900 ML PO (17:01)
[2024-03-16] MEDS: iohexoL 350 MG/ML 100 ML INFUS..BTL IV (17:02)
== END 2024-03-16 13:50 | disposition home or self-care (01) ==
LOC: HO.CT 13:49
PROVIDERS: PCP Internal Medicine; Visit Provider Internal Medicine
DX: R19.5 Other fecal abnormalities (principal); R19.4 Change in bowel habit; R68.89 Other general symptoms and signs
CPT/HCPCS: 36415; 74177; 80048; Q9967

== ENCOUNTER → 2024-03-16 13:50 | Outpatient (BNV) | payer MEDICARE, SELFPAY | PROVIDERS: PCP Internal Medicine; Visit Provider Specialist | DX: R19.5 Other fecal abnormalities (principal) | CPT/HCPCS: 74177 ==

== ENCOUNTER 2024-04-08 08:57 | Outpatient (AMB) | payer MEDICARE, SELFPAY ==
[2024-04-08 08:59] VITALS: BP 110/70; PULSE 75; RESP 18; TEMP 36.5; O2SAT 97; BMI 26.0
--- NOTE | 2024-04-08 08:59 | AM.OFFVISMDC ---
Intake Vital Signs 04/08/24 08:59 Height 5 ft 9 in Weight 176 lb BMI 26.0 BP 110/70 Blood Pressure Location Rt brachial Position Sitting Respiration 18 Pulse 75 Pulse Source Pulse Oximeter Temp 97.7 F Temp Source Oral Pulse Oximetry (%) 97 Oxygen Delivery Method Room Air Intake Visit Reasons: SWV G4039 Allergies No Known Allergies Allergy (Verified 04/08/24 09:02) Medication List - Last Reconciled 04/08/24 by Thea Navas MD atorvastatin 20 mg PO BEDTIME latanoprost 0.005% 1 drp ophthalmic (eye) BEDTIME multivitamin 1 tab PO DAILY olmesartan 40 mg PO DAILY peg 3350-electrolytes 236-22.74-6.74 -5.86 gram (Golytely) 240 mL PO Q10M [zyflamend PO] HPI SWV G4039 HPI Details Initiated the conversation about Advanced Directives. Advanced Directives help? patients prepare for current and future decisions about their medical treatment? and place of care. Discussed with patient that it is a process where a patients? current condition and prognosis are reviewed, their wishes for information? regarding their illness are elicited, and likely medical dilemmas are presented? and options discussed. The form can be amended as needed, reviewed yearly and? make changes as needed IPPE/AWV ? year old presents? for her ? Annual? Wellness Visit, initial visit.? Medical / Social History Reviewed? Past Medical History ?Yes? . ? [place]? of Care / Care Team list updated ?Yes . ? Surgical/Hospitalization? History ?Yes . ? Current Medications? (including OTC and supplements) ?Yes . ? Family History ?Yes? . ? Tobacco? Control form ?Yes . ? AUDIT-C (Alcohol use) form? ?Yes . ? Illicit drug use in Social? History ?Yes . ? Current diagnosis of? depression? ?No ? Appropriate PHQ2/PHQ9? completed ?Yes . ? Data entered by ?Medical? [employer] and reviewed by provider ? Fall Risk ? Fall? History? Have you had any falls with? injury in the past year? ?No . ? Have you had two or more? falls in the past year? ?No . ? Fall Risk Assessment: ?No? falls in the past year . ? HRA filled out by? the patient, reviewed by Provider and scanned. ? IPPE/AWV ? Balance? Romberg? ?Yes . ? Tandem? walk ?Yes . ? Walk and? Turn ?Yes . ? Rise from? sit to stand ?Yes . ?Vision? Corrective? lens ?Yes ? Vision? screen ? Up-to-date, has an appointment [] for vision? screening and glaucoma screening ?Hearing? Whisper? test ?pass .? Initiated the conversation about Advanced Directives. Advanced Directives help? patients prepare for current and future decisions about their medical treatment? and place of care. Discussed with patient that it is a process where a patients? current condition and prognosis are reviewed, their wishes for information? regarding their illness are elicited, and likely medical dilemmas are presented? and options discussed. The form can be amended as needed, reviewed yearly and? make changes as needed Written? Plan?Completed. See Patient? Documents. [facility] Medical History Vitamin B 12 deficiency Annual physical exam Hyperlipidemia HTN (hypertension) Surgical History H/O colonoscopy Family History Father Hodgkin disease Mother No problems noted. 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 in [facility]/[place] Housing: House Patient Tobacco Use Status: Former Tobacco user e-Cigarette/Vaping Use: Never Used service: No Current occupational status: retired Cognitive needs: No Hearing needs: No Vision needs: No Questionnaire Medicare Wellness Checkup What [age] What gender do you identify with?: male During the past 4 weeks, how much have you been bothered by emotional problems such as feeling anxious, depressed, irritable, sad or downhearted, and blue?: slightly During the past 4 weeks, has your physical & emotional health limited your social activities with family, friends, neighbors, or groups?: slightly During the past 4 weeks, how much bodily pain have you generally had?: very mild pain During the past 4 weeks, was someone available to help you if you needed & wanted help?: yes, quite a bit During the past 4 weeks, what was the hardest physical activity you could do for at least 2 minutes?: very heavy Can you get to places out of walking distance without help? (For eg., can you travel alone on buses, taxis or drive your car?): Yes Can you go shopping for groceries or clothes without someone's help?: Yes Can you prepare your own meals?: Yes Can you do your housework without help?: Yes Because of any health problems, do you need the help of another person with your personal care needs such as eating, bathing, dressing or getting around the house?: No Can you handle your own money without help?: Yes During the past 4 weeks, how would you rate your health in general?: very good During the past 4 weeks how have things been going for you?: pretty well Are you having difficulties driving your car?: no Do you always fasten your seat belt when you are in a car?: yes, usually During past 4 weeks, have you been bothered by the following: never: Falling or dizzy when standing up, Sexual problems?, Teeth or denture problems? and Problems using the telephone? and seldom: Trouble eating well? and Tiredness or fatigue? Have you fallen 2 or more times in the past year?: No Are you afraid of falling?: No Are you a smoker?: no During the past 4 weeks, how many drinks of wine, beer, or other alcoholic beverages did you have?: 10 or more per week Do you exercise for about 20 minutes 3 or more times a week?: yes, some of the time Have you been given information to help with the following?: no: Hazards in your house that might hurt you? and no: Keeping track of your medications? How often do you have trouble taking medicines the way you have been told to take them?: I seldom take medications as prescribed How confident are you that you can control & manage most of your health problems?: very confident What is your race?: White Mini Mental State Exam (MMSE) Orientation What is the (year) (season) (date) (day) (month)?: year, season, date, day and month Where are we (state) (county) (town or city) (hospital) (floor)?: state, county, town or city, hospital/clinic and floor Registration Name of 3 unrelated objects clearly and slowly, then ask patient to repeat all 3 of them. (1st repeat determines score. Make sure they can repeat all three): object 1, object 2 and object 3 Attention & Calculation (CHOOSE ONE) Spell WORLD backwards (DLROW): 5 letters Recall Ask patient to repeat the 3 items from question #3.: object 1, object 2 and object 3 Language Show patient a wristwatch & ask what it is. Repeat for pencil.: watch and pencil Ask the patient to repeat the phrase 'No ifs, ands, or buts' after you.: correct Ask the patient to 'take a piece of paper with their right hand' 'fold paper in half' 'place paper on floor': take paper in right hand, fold paper in half and place paper on floor Print the sentence 'CLOSE YOUR EYES' on a piece. If patient actually closes eyes then score.: followed written direction Give patient a blank piece of paper & ask to write a sentence. Score if it contains a noun & verb.: sentence contains subject and verb Score Score: 29 Activity of Daily Living Bathing - sponge bath, tub bath or shower: receives no assistance (gets in/out by self, if usual bathing means Dressing - getting clothes from closets & drawers, including inner/outer garments & fasteners.: gets clothes & gets completely dressed without help Toileting - going to the 'toilet room' for urine/bowel elimination & cleaning self/arranging clothes: goes to toilet room, cleans self, arranges clothes without help Transfer: moves in & out of bed and chair without help (may use support object) Continence: controls urination/bowel movements completely by self Feeding: feeds self without help Total Score: 0 Information obtained from: patient Using telephone: independent Traveling: independent Shopping: independent Preparing meals: independent Housework: independent Taking medicine: independent Managing money: independent PHQ-9 Over the last 2 weeks, how often have you been bothered by any of the following problems? 1. Little interest or pleasure in doing things: several days 2. Feeling down, depressed, or hopeless: several days 3. Trouble falling or staying asleep, or sleeping too much: not at all 4. Feeling tired or having little energy: several days 5. Poor appetite or overeating: not at all 6. Feeling bad about yourself - or that you are a failure or have let yourself or your family down: several days 7. Trouble concentrating on things, such as reading the newspaper or watching television: not at all 8. Moving or speaking so slowly that other people could have noticed. Or the opposite - being so fidgety or restless that you have been moving around a lot more than usual: not at all 9. Thoughts that you would be better off or of hurting yourself in some way: several days Total score: 5 Depression Screening Interpretation: Negative Depression Screening Done: Yes 92368 - PHQ-9 Billing: Yes Source: Developed by Drs. Saleem Madrigal, Nitza Romeo, Lloyd Carmen and colleagues, with an educational terry from [employer]. Review of Systems Const All systems reviewed & are unremarkable except as noted in HPI and below Reports no additional complaints Eyes Reports no additional complaints ENT Reports no additional complaints Card Reports no additional complaints Resp Reports no additional complaints GI Reports no additional complaints Reports no additional complaints Musc Reports no additional complaints Physical Exam Vital Signs: Last Vital Signs Temp 97.7 F 04/08/24 08:59 Pulse 75 04/08/24 08:59 Resp 18 04/08/24 08:59 BP 110/70 04/08/24 08:59 Pulse Ox 97 04/08/24 08:59 Oxygen Delivery Method Room Air 04/08/24 08:59 BMI result Body Mass Index 26.0 Const General: no acute distress HEENT Head: Yes normal to inspection Ears: hearing grossly normal bilaterally Neck Neck: Yes no lymphadenopathy and Yes supple Resp Effort & Inspection: normal respiratory effort Auscultation: clear to auscultation bilaterally Cardio Rhythm: regular rhythm Heart sounds: S1 normal heart sound present and S2 normal heart sound present GI Inspection: Yes normal to inspection Palpation (GI): Soft to palpation Percussion: Yes normal to percussion Auscultation: normal bowel sounds Extrem General: Yes no clubbing, cyanosis or edema Assessment & Plan Assessment & Plan (1) Vitamin B 12 deficiency: Code(s): E53.8 - Deficiency of other specified B group vitamins Plan: Continue multivitamin monitor vitamin B12 level (2) Vitamin D deficiency: Code(s): E55.9 - Vitamin D deficiency, unspecified Plan: Continue vitamin-D supplement (3) Hyperlipidemia: Code(s): E78.5 - Hyperlipidemia, unspecified Plan: Continue statin (4) HTN (hypertension): Code(s): I10 - Essential (primary) hypertension Plan: Continue olmesartan (5) Annual physical exam: Code(s): Z00.00 - Encounter for general adult medical examination without abnormal findings Plan: Well-balanced diet regular physical activity discussed with the patient (6) Positive colorectal cancer screening using Cologuard test: Comment: 09/2023, f/u with GI DrTodd , will have EGD and colonoscopy 2024 Code(s): R19.5 - Other fecal abnormalities Plan: Follow-up with GI (7) Kidney cysts: Comment: on CT 03/2024, renal ultrasound scheduled by GI Code(s): N28.1 - Cyst of kidney, acquired Plan: Patient will have renal ultrasound to evaluate for renal cysts Quality Reporting (2019) Depression/Bipolar (159/160/161/177) PHQ-9: Total score: 5 Coding Level of Care Code Medicare Subsequent (G0439) Diagnoses Vitamin B 12 deficiency E53.8 Vitamin D deficiency E55.9 Hyperlipidemia E78.5 HTN (hypertension) I10 Annual physical exam Z00.00 Positive colorectal cancer screening using Cologuard test R19.5 Kidney cysts N28.1 CPT Codes Advance Care Planning - Advance Care Planning discussion: On file, no changes ([id number]) Advance Care Planning - Time spent: 1-15 minutes, on File ([id number]) Additional Codes PHQ-9 - 52517 - PHQ-9 Billing: Yes ([id number]) Advance Care Planning Advance Care Planning discussion: On file, no changes Forms completed: Health Care Proxy Time spent: 1-15 minutes, on File Did not discuss due to Cultural/Spiritual beliefs: Yes
== END 2024-04-08 09:38 | disposition home or self-care (01) ==
PROVIDERS: PCP Internal Medicine; Visit Provider Internal Medicine
DX: Z00.00 Encounter for general adult medical examination without abnormal findings (principal); E53.8 Deficiency of other specified B group vitamins; E55.9 Vitamin D deficiency, unspecified; E78.5 Hyperlipidemia, unspecified; I10 Essential (primary) hypertension; R19.5 Other fecal abnormalities; N28.1 Cyst of kidney, acquired

== ENCOUNTER → 2024-04-08 08:57 | Outpatient (BNVA) | payer MEDICARE, SELFPAY | PROVIDERS: PCP Internal Medicine; Visit Provider Internal Medicine | DX: Z00.00 Encounter for general adult medical examination without abnormal findings (principal); E53.8 Deficiency of other specified B group vitamins; E55.9 Vitamin D deficiency, unspecified; E78.5 Hyperlipidemia, unspecified; I10 Essential (primary) hypertension; R19.5 Other fecal abnormalities; N28.1 Cyst of kidney, acquired | CPT/HCPCS: 96127 ==

== ENCOUNTER → 2024-04-14 08:45 | Outpatient (BNV) | payer MEDICARE, SELFPAY | PROVIDERS: PCP Internal Medicine; Visit Provider Specialist | DX: K80.20 Calculus of gallbladder without cholecystitis without obstruction (principal); K76.0 Fatty (change of) liver, not elsewhere classified | CPT/HCPCS: 76700 ==

== ENCOUNTER 2024-06-09 09:57 | Day surgery (SDC) | payer MEDICARE, SELFPAY ==
--- NOTE | 2024-06-08 08:34 | HO.ANESPROP2 ---
Documented by User: Rubi Goel NP 06/08/24 08:34 HPI - Anesthesia Eval Consult details Narrative: 78yo M for Upper Endoscopy and Colonoscopy PMF Active Problems Active Problems: All Active Problems Kidney cysts (Acute) Gallstone (Acute) Unintentional weight change (Acute) Change in bowel habit (Acute) Fatigue (Acute) Positive colorectal cancer screening using Cologuard test (Acute) Constipation (Acute) Decline in verbal memory (Acute) Vitamin D deficiency (Acute) Vitamin B 12 deficiency (Acute) Hyperlipidemia (Acute) HTN (hypertension) (Acute) Annual physical exam (Acute) Past Medical History Medical History Vitamin B 12 deficiency Annual physical exam Hyperlipidemia HTN (hypertension) Family History Family History Father Hodgkin disease Mother No problems noted. 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[facility]/[place] Housing: House Patient Tobacco Use Status: Former Tobacco user e-Cigarette/Vaping Use: Never Used Use of substances other than those prescribed or required for medical reasons: No Advance Directives: No Advance Directives Information Provided: Yes service: No Current occupational status: retired Cognitive needs: No Hearing needs: No Vision needs: No Meds Allergies Allergy/AdvReac Type Severity Reaction Status Date / Time No Known Allergies Allergy Verified 06/09/24 10:38 Home Medications ?Medication ?Instructions ?Recorded ?Confirmed ?Last Taken ?Type multivitamin 1 tab PO DAILY 12/13/20 06/09/24 Unknown History latanoprost 0.005 % eye drops 1 drp ophthalmic (eye) BEDTIME 09/10/22 06/09/24 Unknown History zyflamend PO 01/13/24 04/08/24 Unknown History Assessment and Plan Assessment Anesthesia Assessment: Chart Reviewed Documented by User: Marciano Tsang MD 06/09/24 12:06 PMF Past Medical History Medical History Vitamin B 12 deficiency Annual physical exam Hyperlipidemia HTN (hypertension) Family History Family History Father Hodgkin disease Mother No problems noted. 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[place] Housing: House Patient Tobacco Use Status: Former Tobacco user e-Cigarette/Vaping Use: Never Used Use of substances other than those prescribed or required for medical reasons: No Advance Directives: No Advance Directives Information Provided: Yes service: No Current occupational status: retired Cognitive needs: No Hearing needs: No Vision needs: No Meds Allergies Allergy/AdvReac Type Severity Reaction Status Date / Time No Known Allergies Allergy Verified 06/09/24 10:38 Home Medications ?Medication ?Instructions ?Recorded ?Confirmed ?Last Taken ?Type multivitamin 1 tab PO DAILY 12/13/20 06/09/24 Unknown History latanoprost 0.005 % eye drops 1 drp ophthalmic (eye) BEDTIME 09/10/22 06/09/24 Unknown History zyflamend PO 01/13/24 04/08/24 Unknown History Exam Airway Mallampati Class: II TM Dist: >3cm Neck ROM: Full Assessment and Plan Assessment Anesthesia Assessment: Anesthesia Plan Discussed Final Anesthetic Review Family History of Problems with Anesthesia: No History of Problems with Anesthesia: No NPO: Yes ASA Class: II Final Preanesthetic Review: No Changes in Pt Med Stat, Meds/Allgs Chart Reviewed, Consent Obtained/Reviewed and Anes Risks/Benef Reviewed Patient Risk: Intermediate Procedure Risk: Low Anesthetic Plan Anesthetic Plan: TIVA Disposition: Standard PACU
[2024-06-09] VITALS (8 sets, daily range): BP systolic 84–140; BP diastolic 48–84; PULSE 73–82; RESP 14–20; TEMP 36.2–36.7; O2SAT 96–98; BMI 25.3
[2024-06-09] MEDS: Lactated Ringers 1,000 ML 100 ML IVCONT (10:39)
--- NOTE | 2024-06-09 10:39 | MHC.SHP ---
Pre-Procedural Eval Section A - 24 Hr Update-Section A only Date of Service: 06/09/24 Section B - Complete if H&P > 30 days Chief Complaint: Other fecal abnormalities, change in bowel habits, Details of Present Illness: PMH: Hyperlipidemia HTN (hypertension) Present Medications: see Short Stay Collaborative assessment Allergies: Allergies Allergy/AdvReac Type Severity Reaction Status Date / Time No Known Allergies Allergy Verified 06/09/24 10:38 Review of Systems Review of Systems Comment: Ten point ROS negative Exam Exam Comment: Gen appear: No acute distress HEENT: no icterus Chest: No overt resp distress Abd: soft, nontender, nondistended Psych: Stable affect, answering questions appropriately Neuro: A/Ox3 noted to move all extremities spontaneously Ext: no peripheral edema Plan Diagnosis/Plan: Unchanged I have reviewed the history and physical and performed a pertinent physical examination on my patient. No changes have occurred unless specified. Time Spent With Patient Time: Total time managing care of this patient today ____ minutes.
--- NOTE | 2024-06-09 11:50 | P.OPN-COLO_ITS ---
Colonoscopy Operative Note Operative Note Date of Service: 06/09/24 Narrative: Procedure: Upper endoscopy and colonoscopy Indication: Positive cologuard, change in bowel habits Endoscopist: Rhonda Brooks MD Anesthesia Provider: Dr Marciano Tsang Anesthesia type: MAC Instrument: [id number] and [id number] EGD Procedure:?? The procedure, indications, preparation and potential complications were reviewed with the patient, who indicated understanding and gave written informed consent to proceed. The endoscope was introduced through the mouth, and advanced to the 2nd part of the duodenum. The mucosa was carefully examined on slow withdrawal of the endoscope. The patient tolerated the procedure well. There were no immediate complications.? EGD Findings:? * Esophagus:? The Z-line was at 41 cm. There was a 8 mm ulcer just under the Z line with pigment spot. Cold forceps biospies were taken from the edge of the ulcer. * Stomach:? Large paraesophageal hernia with small erosions noted in the herniated fundus. Erythema and erosions in the antrum. Retroflexion was performed in the cardia with good visualization of the GEJ ulcer as described above. Cold forceps biopsies were taken from the antrum and body of the stomach. * Duodenum:? Normal duodenal mucosa. Cold forceps biopsies were taken from the duodenal bulb and 2nd portion of the duodenum to rule out celiac sprue. Colonoscopy Procedure:? The patient was then turned for the colonoscopy. A digital rectal exam was performed which was abnormal for external hemorrhoids.? A distal attachment cap was affixed to the tip of the scope and the colonoscope was then inserted through the anus and advanced through the colon and advanced to the cecum at 75 cm and terminal ileum.? Appendiceal orifice and ileocecal valve were identified. Mucosa was carefully examined under high definition white light as the instrument was slowly withdrawn in a retrograde panoramic fashion. Retroflexion was performed in ascending colon and rectum. The procedure was not difficult. The quality of the prep was BBPS: 3+2+3 = adequate Withdrawal time 14 minutes Limitations: No limitations Findings: Mucosa: Normal colon mucosa. Cold forceps biopsies were taken right and left side of the colon to rule out microscopic colitis. The terminal ileum could only be intubated superficially due to looping of scope vs ?? stricture. Protruding lesions: * 1 pedunculated polyp of size 12 mm in descending colon. Hot snare polypectomy was performed. The polyp was completely removed and retrieved. * Medium internal hemorrhoids without stigmata of recent bleeding. Excavated lesions: * Diffuse diverticulosis of left side of the colon and few diverticula in the right side of the colon. Impression: 1. GE junction ulcer (biopsy) 2. Angelo erosions 3. Antral gastritis (biopsy) 4. Normal duodenum (biopsy) 5. Normal colon and terminal ileum mucosa (biopsy) 6. One polyp removed 7. Diverticulosis 8. Internal and external hemorrhoids Recommendations:?? * Follow-up path results * Start omeprazole 20 BID x 8-12 weeks and then once daily * Repeat EGD to be booked in a few months to assess for healing of the ulcer * CT enterography recommended for small bowel evaluation * Repeat colonoscopy in 3 years for polyp surveillance is optional, if pt in good health
--- NOTE | 2024-06-09 13:03 | PC.NURSE ---
IVF were double documented in MAR and in I&O. Adjustment made to Input/Output on worklist. Total amount of IVF received pooja/intraop was 1000 ml.
== END 2024-06-09 13:22 | disposition home or self-care (01) ==
PROVIDERS: PCP Internal Medicine; Visit Provider Internal Medicine
PROC: (CPT 45385; principal; 2024-06-09 12:00)
DX: K63.5 Polyp of colon (principal); K57.30 Diverticulosis of large intestine without perforation or abscess without bleeding; K64.8 Other hemorrhoids; R19.5 Other fecal abnormalities; R19.4 Change in bowel habit; K25.9 Gastric ulcer, unspecified as acute or chronic, without hemorrhage or perforation; K22.10 Ulcer of esophagus without bleeding; K29.60 Other gastritis without bleeding; K44.9 Diaphragmatic hernia without obstruction or gangrene; R63.4 Abnormal weight loss; Z68.25 Body mass index [BMI] 25.0-25.9, adult; R53.83 Other fatigue; I10 Essential (primary) hypertension; E78.5 Hyperlipidemia, unspecified; E53.8 Deficiency of other specified B group vitamins; E55.9 Vitamin D deficiency, unspecified; N28.1 Cyst of kidney, acquired; Z87.891 Personal history of nicotine dependence; Z79.899 Other long term (current) drug therapy
CPT/HCPCS: 45385; 45380; 43239; 88305; 88313; 88342; J2003; J2371; J2704

== ENCOUNTER → 2024-06-09 09:57 | Outpatient (BNV) | payer MEDICARE, SELFPAY | PROVIDERS: PCP Internal Medicine; Visit Provider Internal Medicine | DX: Z12.11 Encounter for screening for malignant neoplasm of colon (principal); R19.5 Other fecal abnormalities; D12.4 Benign neoplasm of descending colon; K57.30 Diverticulosis of large intestine without perforation or abscess without bleeding; R63.0 Anorexia; R63.4 Abnormal weight loss; K28.9 Gastrojejunal ulcer, unspecified as acute or chronic, without hemorrhage or perforation; K29.70 Gastritis, unspecified, without bleeding | CPT/HCPCS: 43239; 45385 ==

== ENCOUNTER 2024-06-29 09:31 | Outpatient (AMB) | payer MEDICARE, SELFPAY ==
--- NOTE | 2024-06-29 09:44 | A.OFFVIS_ITS ---
Vital Signs 06/29/24 09:56 Height 5 ft 9 in Weight 180 lb 12.465 oz BMI 26.7 BP 174/80 H Blood Pressure Location Lt brachial Position Sitting Pulse 60 Intake Visit Reasons: Post op egd/colo visit Intake Note: Kevin presents in the office as a follow up for his EGD and COLO. CC: He states that he is just here for results - not having any concerns. CT scan orders 07/14. 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 Pt reports changes in bowel habits that started in 2020 but worsened over the last 6 months. Noticed stools were thinner. At one point also developed severe constipation. Sometimes also has a R upper side fleeting pain. Occ has noticed blood in stool geraldine while straining. Reports fatigue, decreased stamina for around the same duration. Also thinks has lost appetite. Thinks clothes are a bit though no significant weight loss in the EMR. Last colo was 20 years ago. PCP ordered cologuard in September which was POSITIVE. No fam hx of CRC. Mat grandmother may have had stomach ca. 06/15/24: 1. GE junction ulcer (biopsy) 2. Angelo erosions 3. Antral gastritis (biopsy) 4. Normal duodenum (biopsy) 5. Normal colon and terminal ileum mucosa (biopsy) 6. One polyp removed 7. Diverticulosis 8. Internal and external hemorrhoids Path: A. Duodenum, biopsy: Duodenal mucosa within normal limits. B. Stomach, antrum, biopsy: Scant small fragment of fibrous tissue; no gastric tissue identified. C. Stomach, body, biopsy: Oxyntic mucosa with mild chronic inactive inflammation; no Helicobacter organisms seen. D. GE junction, edge of ulcer, biopsy: - Cardiac-type mucosa with mild chronic inactive inflammation and surface hyperplastic changes; no intestinal metaplasia seen. - Active esophagitis (neutrophils). E. Colon, right, biopsy: Colonic mucosa within normal limits. F. Colon, left, biopsy: Colonic mucosa within normal limits. G. Colon, descending, polypectomy: Traditional serrated adenoma with high-grade dysplasia; multiple additional levels examined 06/29/24: Here for follow up. Results already sent over the portal and pt has no questions. Pt reports stools are actually more regular now, caliber fine. No blood in stools. See above - CTE ordered for ? IC narrowing noted on colo. Willa 07/14. [facility] Medical History (Updated 06/29/24 @ 16:20 by Rhonda Brooks MD) Vitamin B 12 deficiency Annual physical exam Hyperlipidemia HTN (hypertension) Surgical History (Updated 06/29/24 @ 09:57 by SUJATHA Peterson) History of esophagogastroduodenoscopy (EGD) H/O colonoscopy Family History Father Hodgkin disease Mother No problems noted. 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 in [facility]/[place] Housing: House Patient Tobacco Use Status: Former Tobacco user e-Cigarette/Vaping Use: Never Used service: No Current occupational status: retired Cognitive needs: No Hearing needs: No Vision needs: No Review of Systems Const All systems reviewed & are unremarkable except as noted in HPI and below Physical Exam Vital Signs: Last Vital Signs Pulse 60 06/29/24 09:56 BP 174/80 H 06/29/24 09:56 BMI result Body Mass Index 26.7 No apparent distress Nonicteric Abdomen soft, nondistended Alert and oriented x3, normal gait Assessment & Plan Assessment & Plan (1) Ulcer, esophagus: Code(s): K22.10 - Ulcer of esophagus without bleeding Category: Medical (2) Personal history of colonic polyps: Code(s): Z86.0100 - Personal history of colon polyps, unspecified Category: Medical (3) Serrated polyp of colon: Code(s): K63.5 - Polyp of colon Category: Medical (4) Ileocecal valve stenosis: Code(s): K63.89 - Other specified diseases of intestine Plan 1. Esophagitis with esophageal ulcer. Continues on b.i.d. omeprazole. This is to be continued for 8-12 weeks, and then can reduce to once daily. He is aware that he will need a repeat endoscopy to assess for healing and rule out underlying Sims's. Appointment for EGD is pending. 2. Patient with serrated adenoma with high-grade dysplasia on colonoscopy. Likely reason for positive Cologuard. Since this was removed en-bloc, he will need a repeat colonoscopy in 3 years. 3. Ileocecal valve could not be intubated completely during the colonoscopy, ? From looping of the colon versus IC narrowing. CT enterography ordered for further evaluation. This is scheduled for 07/14. Follow-up after EGD Coding Level of Care Code Est Pt Level 4 (17257) Diagnoses Ulcer, esophagus K22.10 Personal history of colonic polyps Z86.0100 Serrated polyp of colon K63.5 Ileocecal valve stenosis K63.89
[2024-06-29 09:56] VITALS: BP 174/80; PULSE 60; BMI 26.7
== END 2024-06-29 11:37 | disposition home or self-care (01) ==
LOC: HO.HGI 09:32
PROVIDERS: PCP Internal Medicine; Visit Provider Internal Medicine
DX: K22.10 Ulcer of esophagus without bleeding (principal); Z86.0100 Personal history of colon polyps, unspecified; K63.5 Polyp of colon; K63.89 Other specified diseases of intestine
CPT/HCPCS: 99214

== ENCOUNTER → 2024-06-29 09:31 | Outpatient (BNVA) | payer MEDICARE, SELFPAY | PROVIDERS: PCP Internal Medicine; Visit Provider Internal Medicine | DX: K22.10 Ulcer of esophagus without bleeding (principal); K63.5 Polyp of colon; R10.11 Right upper quadrant pain; K63.89 Other specified diseases of intestine; Z86.0100 Personal history of colon polyps, unspecified | CPT/HCPCS: 99212 ==

== ENCOUNTER 2024-08-30 09:00 | Outpatient (REF) | payer MEDICARE, SELFPAY ==
--- NOTE | ~2024-08-30 | CT_ITS ---
CLINICAL HISTORY: R19.4 - Change in bowel habit CT abdomen and pelvis with contrast Comparison: CT/SR - CT ABDOMEN PELVIS W IV CON - 03/16/24 16:23 EST Findings: The lung bases are clear. Cholelithiasis. Bilateral renal cysts right more than left measuring up to 4 cm. Remainder of the solid organs are within normal limits. No urolithiasis. No hydronephrosis. 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 Moderate solid stool is noted within the ascending and transverse colon. The descending colon is mostly contracted. Moderate diverticulosis of the sigmoid colon without evidence of diverticulitis. Pelvic contents unremarkable. Normal appendix. The bones are intact. 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 Moderate stool burden within the ascending and transverse colon, may represent chronic constipation. Moderate sigmoid colon diverticulosis without evidence of acute diverticulitis. Cholelithiasis. Bilateral renal cysts measuring up to 4 cm. This document has been electronically signed by: Julianne Ch MD on 08/30/2024 23:01:09
[2024-08-30] MEDS: iohexoL 350 MG/ML 100 ML INFUS..BTL IV (10:29)
[2024-08-30] MEDS: Sorbitol/Mannit/Xanth Imaging 500 ML LIQUID 1500 ML PO (10:30)
[2024-08-31 11:18] LABS: Creatinine POC 1.2 mg/dL (0.5-1.4); GFR POC > 60
== END 2024-08-30 09:01 | disposition home or self-care (01) ==
LOC: HO.CT 09:00
PROVIDERS: PCP Internal Medicine; Visit Provider Internal Medicine
DX: R19.4 Change in bowel habit (principal); R19.5 Other fecal abnormalities
CPT/HCPCS: 74177; 82565; Q9967

== ENCOUNTER → 2024-08-30 09:02 | Outpatient (BNV) | payer MEDICARE, SELFPAY | PROVIDERS: PCP Internal Medicine; Visit Provider Student in an Organized Health Care Education/Training Program | DX: N28.1 Cyst of kidney, acquired (principal) | CPT/HCPCS: 74177 ==

== ENCOUNTER 2024-09-08 06:51 | Day surgery (SDC) | payer MEDICARE, SELFPAY ==
[2024-09-06 16:16] VITALS: BMI 26.7
--- NOTE | 2024-09-07 09:21 | P.CONAN_ITS ---
Documented by User: Rubi Goel NP 09/07/24 09:22 HPI - Anesthesia Eval Consult details Narrative: 79yo M for Upper Endoscopy s/p EGD and Burden 06/2024 with TIVA PMFSH Active Problems Active Problems: All Active Problems Serrated polyp of colon (Acute) Personal history of colonic polyps (Acute) Ulcer, esophagus (Acute) Kidney cysts (Acute) Gallstone (Acute) Unintentional weight change (Acute) Change in bowel habit (Acute) Fatigue (Acute) Positive colorectal cancer screening using Cologuard test (Acute) Constipation (Acute) Decline in verbal memory (Acute) Vitamin D deficiency (Acute) Vitamin B 12 deficiency (Acute) Hyperlipidemia (Acute) HTN (hypertension) (Acute) Annual physical exam (Acute) Past Medical History Medical History Vitamin B 12 deficiency Annual physical exam Hyperlipidemia HTN (hypertension) Family History Family History Father Hodgkin disease Mother No problems noted. 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[facility]/[place] Housing: House Patient Tobacco Use Status: Former Tobacco user e-Cigarette/Vaping Use: Never Used Use of substances other than those prescribed or required for medical reasons: No Are you DNR?: No Advance Directives: No Advance Directives Information Provided: Yes service: No Current occupational status: retired Cognitive needs: No Hearing needs: No Vision needs: No Meds Allergies Allergy/AdvReac Type Severity Reaction Status Date / Time No Known Allergies Allergy Verified 09/08/24 07:28 Home Medications ?Medication ?Instructions ?Recorded ?Confirmed ?Last Taken ?Type multivitamin 1 tab PO DAILY 12/13/20 07/0 05/31 Unknown History latanoprost 0.005 % eye drops 1 drp ophthalmic (eye) B EDTIME 09/10/22 09/08/24 Unknown History zyflamend PO 01/13/24 04/08/24 Unknown History Exam Height,Weight and Vital Signs: Height 5 ft 9 in Weight 81.987 kg Assessment and Plan Assessment Anesthesia Assessment: Chart Reviewed Final Anesthetic Review Family History of Problems with Anesthesia: No History of Problems with Anesthesia: No Documented by User: Selma Jacobs MD 09/08/24 07:45 PMFSH Past Medical History Medical History Vitamin B 12 deficiency Annual physical exam Hyperlipidemia HTN (hypertension) Family History Family History Father Hodgkin disease Mother No problems noted. 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[facility]/[place] Housing: House Patient Tobacco Use Status: Former Tobacco user e-Cigarette/Vaping Use: Never Used Use of substances other than those prescribed or required for medical reasons: No Are you DNR?: No Advance Directives: No Advance Directives Information Provided: Yes service: No Current occupational status: retired Cognitive needs: No Hearing needs: No Vision needs: No Meds Allergies Allergy/AdvReac Type Severity Reaction Status Date / Time No Known Allergies Allergy Verified 09/08/24 07:28 Home Medications ?Medication ?Instructions ?Recorded ?Confirmed ?Last Taken ?Type multivitamin 1 tab PO DAILY 12/13/20/05/31 Unknown History latanoprost 0.005 % eye drops 1 drp ophthalmic (eye) B EDTIME 09/10/22 09/08/24 Unknown History zyflamend PO 01/13/24 04/08/24 Unknown History Exam Airway Mallampati Class: III TM Dist: >3cm Neck ROM: Full Loose/Missing/Broken Teeth: No Heart: RRR Lungs: CTA Assessment and Plan Assessment Anesthesia Assessment: Anesthesia Plan Discussed Final Anesthetic Review NPO: Yes ASA Class: II Final Preanesthetic Review: Meds/Allgs Chart Reviewed, Consent Obtained/Reviewed and Anes Risks/Benef Reviewed Patient Risk: Low Procedure Risk: Intermediate Anesthetic Plan Anesthetic Plan: MAC: Disposition: Standard PACU
[2024-09-08 07:06] VITALS: BMI 26.1
[2024-09-08 07:12] VITALS: BP 153/74; PULSE 58; RESP 16; TEMP 36.2; O2SAT 98
[2024-09-08] MEDS: Lactated Ringers 1,000 ML 100 ML IVCONT (07:25)
--- NOTE | 2024-09-08 07:51 | MHC.SHP ---
Pre-Procedural Eval Section A - 24 Hr Update-Section A only Date of Service: 09/08/24 Section B - Complete if H&P > 30 days Chief Complaint: Esophagitis Details of Present Illness: PMH: Hyperlipidemia HTN (hypertension) Present Medications: see Short Stay Collaborative assessment Allergies: Allergies Allergy/AdvReac Type Severity Reaction Status Date / Time No Known Allergies Allergy Verified 09/08/24 07:28 Review of Systems Review of Systems Comment: Ten point ROS negative Exam Exam Comment: Gen appear: No acute distress HEENT: no icterus Chest: No overt resp distress Abd: soft, nontender, nondistended Psych: Stable affect, answering questions appropriately Neuro: A/Ox3 noted to move all extremities spontaneously Ext: no peripheral edema Plan Diagnosis/Plan: Unchanged I have reviewed the history and physical and performed a pertinent physical examination on my patient. No changes have occurred unless specified. Time Spent With Patient Time: Total time managing care of this patient today ____ minutes.
--- NOTE | 2024-09-08 08:39 | P.OP_ITS ---
Operative Note Operative Note Date of Service: 09/08/24 Narrative: Procedure: Esophagogastroduodenoscopy Endoscopist: Rhonda Brooks MD Indication: Esophagitis, hiatal hernia Anesthesia Provider: Dr Rose Jacobs Anesthesia Type: MAC ?? EGD Procedure:?? The procedure, indications, preparation and potential complications were reviewed with the patient, who indicated understanding and gave written informed consent to proceed. A physical exam was performed. The endoscope was introduced through the mouth, and advanced to the first part of duodenum. The mucosa was carefully examined on slow withdrawal of the endoscope. The patient tolerated the procedure well. There were no immediate complications.? ? EGD Findings:? * Esophagus:? Normal mucosa noted in the entire esophagus. The Z line was at 41 cm. * Stomach:? A large paraesophageal hernia with concern for torsion was noted. Retroflexion was performed and alpha loop was created to reduce this. Normal mucosa was noted in the stomach and herniated portion. * Duodenum:? Normal mucosa was noted in the whole of the examined duodenum. ? EGD Impressions:? * Normal esophagus * Large para-esophageal hernia with concern for volvulus (reduced) * Normal gastric mucosa i.e no mucosal signs of vascular compromise * Normal duodenum ?? Recommendations:?? * Referral to foregut surgery at [facility] for surgical management to avoid recurrence * Barium swallow with UGIS to be done urgently as outpatient * Cont PPI
--- NOTE | 2024-09-08 08:39 | W.PM.OPN ---
Operative Note Operative Note Date of Service: 09/08/24 Narrative: Procedure: Esophagogastroduodenoscopy Endoscopist: Rhonda Brooks MD Indication: Esophagitis, hiatal hernia Anesthesia Provider: Dr Rose Jacobs Anesthesia Type: MAC ?? EGD Procedure:?? The procedure, indications, preparation and potential complications were reviewed with the patient, who indicated understanding and gave written informed consent to proceed. A physical exam was performed. The endoscope was introduced through the mouth, and advanced to the first part of duodenum. The mucosa was carefully examined on slow withdrawal of the endoscope. The patient tolerated the procedure well. There were no immediate complications.? ? EGD Findings:? Esophagus:? Normal mucosa noted in the entire esophagus. The Z line was at 41 cm. Stomach:? A large paraesophageal hernia with concern for torsion was noted. Retroflexion was performed and alpha loop was created to reduce this. Normal mucosa was noted in the stomach and herniated portion. Duodenum:? Normal mucosa was noted in the whole of the examined duodenum. ? EGD Impressions:? Normal esophagus Large para-esophageal hernia with concern for volvulus (reduced) Normal gastric mucosa i.e no mucosal signs of vascular compromise Normal duodenum ?? Recommendations:?? Referral to foregut surgery at [facility] for surgical management to avoid recurrence Barium swallow with UGIS to be done urgently as outpatient Cont PPI
[2024-09-08 08:52] VITALS: BP 109/64; PULSE 64; RESP 18; TEMP 36.1; O2SAT 99
[2024-09-08 09:05] VITALS: BP 103/55; PULSE 69; RESP 18; O2SAT 95
[2024-09-08 09:19] VITALS: BP 119/68; PULSE 64; RESP 16; TEMP 36.2; O2SAT 97
== END 2024-09-08 09:54 | disposition home or self-care (01) ==
PROVIDERS: PCP Internal Medicine; Visit Provider Internal Medicine
PROC: 0DJ08ZZ Inspection of Upper Intestinal Tract, Via Natural or Artificial Opening Endoscopic (ICD-10-PCS; CPT 43235; principal; 2024-09-08 08:30)
DX: K44.9 Diaphragmatic hernia without obstruction or gangrene (principal); K31.89 Other diseases of stomach and duodenum; K22.10 Ulcer of esophagus without bleeding; K63.3 Ulcer of intestine; I10 Essential (primary) hypertension; E78.5 Hyperlipidemia, unspecified; E53.8 Deficiency of other specified B group vitamins; E55.9 Vitamin D deficiency, unspecified; Z79.02 Long term (current) use of antithrombotics/antiplatelets; Z79.899 Other long term (current) drug therapy
CPT/HCPCS: 45381; 43235; J2003; J2704

== ENCOUNTER → 2024-09-08 06:51 | Outpatient (BNV) | payer MEDICARE, SELFPAY | PROVIDERS: PCP Internal Medicine; Visit Provider Internal Medicine | DX: K44.0 Diaphragmatic hernia with obstruction, without gangrene (principal) | CPT/HCPCS: 43235; 43281 ==

== ENCOUNTER 2024-09-12 11:13 | Outpatient (AMB) | payer MEDICARE, SELFPAY ==
--- NOTE | 2024-09-12 11:28 | A.OFFVIS_ITS ---
VS Expanded 09/12/24 11:36 BP 168/81 H Blood Pressure Location Rt brachial Blood Pressure Position Sitting Pulse 66 Pulse Source Pulse Oximeter Temp 97.1 F Temperature Source Temporal Artery Scan Pulse Oximetry 98 Oxygen Delivery Method Room Air Height 5 ft 9 in Weight 174 lb 9.6 oz BMI 25.8 Body Fat % 24.0 Body Fat Mass 41.8 Fat Free Mass 132.4 Visceral Fat Rating 15.0 Body Water % 50.9 Body Water Mass 88.8 Muscle Mass/Score 125.8 Basal Metabolic Rate/Score 1,725 Intake Visit Reasons: OV Paraesophageal Hernia - Dr. Brooks Ref. Allergies No Known Allergies Allergy (Verified 09/12/24 12:04) Medication List - Last Reconciled 09/12/24 by Timothy Sandoval MD atorvastatin 20 mg PO BEDTIME dorzolamide-timolol 22.3-6.8 mg/mL 1 drp ophthalmic (eye) BID latanoprost 0.005% 1 drp ophthalmic (eye) BEDTIME multivitamin 1 tab PO DAILY olmesartan 40 mg PO DAILY omeprazole 20 mg PO BID 90 days [zyflamend PO] HPI Comments Details: Wakes up: 6am, Sleeps: 10pm Breakfast: occasionally at 9am: Welsh yogurt with nuts/raisins or half sandwich Lunch: occasionally at 2pm (tuna sandwich) Dinner: occasionally at 6pm (chicken nuggerts or pork) Snacks: ice cream or oameal raisin cookies Beverages: Coffee: 2-3 cups/d (black), tea/soda/juice: none, ETOH: large can of beer x4/wk Tests reviewed: CT enterography: large paraesophageal hernia with distended stomach proximal and distal to the hernia suggestive of partial volvulus EGD: large paraesophageal hernia with an ulcer at the GE junction/cardia Colonoscopy: polyp at descending colon with high grade dysplasia: needs repeat colonoscopy in [address] abd/pelvis 03/2024: as CT enterography PFSH Medical History Vitamin B 12 deficiency Annual physical exam Hyperlipidemia HTN (hypertension) Surgical History Hx of cornea transplant Hx of right inguinal hernia repair Hx of left inguinal hernia repair Hx of colonoscopy (06/09/24) History of esophagogastroduodenoscopy (EGD) (06/09/24) History of esophagogastroduodenoscopy (EGD) H/O colonoscopy Family History Father Hodgkin disease Mother No problems noted. 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[facility]/[place] Housing: House Alcohol intake: current Alcohol intake frequency: a few times a week Patient Tobacco Use Status: Former Tobacco user e-Cigarette/Vaping Use: Never Used service: No Current occupational status: retired Cognitive needs: No Hearing needs: No Vision needs: No Physical Exam Vital Signs: Last Vital Signs Temp 97.1 F 09/12/24 11:36 Pulse 66 09/12/24 11:36 BP 168/81 H 09/12/24 11:36 Pulse Ox 98 09/12/24 11:36 Oxygen Delivery Method Room Air 09/12/24 11:36 BMI result Body Mass Index 25.8 Assessment & Plan Assessment & Plan (1) Paraesophageal hernia: Code(s): K44.9 - Diaphragmatic hernia without obstruction or gangrene Category: Medical Plan: 1. 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 We discussed the details of the diaphragmatic hernia repair and the potential technical challenges such as being able to achieve enough mobilization of the esophagus back in the abdomen and being able to close the diaphragmatic muscle (crura) primarily with sutures. We also discussed the possibility of using a biologic mesh to close the hernia defect if the crura cannot be adequately re-approximated primarily with sutures. We also discussed the option of doing a gastropexy or a fundoplication to prevent postoperative reflux and prevent hernia recurrence. As we discussed, I favor the gastropexy as the fundoplication can cause several distrurbing symptoms such as gas-bloating, flatulence, inability to burp which can be bothersome to patients. Also we discussed the complexity of a potential hernia recurrence in association with a hernia recurrence. He was in agreement not to have a fundoplication. We also discussed that after surgery, he will need to be on a liquid diet with protein shakes the first week. The second week will add protein bars and soft foods and after the third week we will introduce small amounts of regular food. The transition to normal eating habits will take about 6 weeks which is the time required for the repair to heal completely. He is in agreement to proceed with surgery on 10/09/2024 2. Please buy a body composition scale and send me weight measurements weekly 3. Please change your meal plan to one Celebrate Rebuild protein shake (1 scoop in 8oz almond milk) at 7-9am, one Celebrate protein bar at 10-12pm, another Celebrate Rebuild protein shake (1 scoop in 8oz almond milk) at 1pm-3pm, one more Celebrate protein bar at 4-6pm and one meal at 7pm 4. Will do EKG today Orders: Orders ECG 12 lead EKG Today Z01.818 - Encounter for other preprocedural examination Medications: New sucralfate 10 mL PO BID 600 mL 2RF K25.9 - Gastric ulcer, unspecified as acute or chronic, without hemorrhage or perforation sucralfate 10 mL PO Q6H 600 mL 2RF K25.9 - Gastric ulcer, unspecified as acute or chronic, without hemorrhage or perforation
[2024-09-12 11:36] VITALS: BP 168/81; PULSE 66; TEMP 36.2; O2SAT 98; BMI 25.8
== END 2024-09-12 17:00 | disposition home or self-care (01) ==
LOC: HO.HBS 11:14
PROVIDERS: PCP Internal Medicine; Visit Provider Surgery
DX: K44.9 Diaphragmatic hernia without obstruction or gangrene (principal)
CPT/HCPCS: 99204

== ENCOUNTER → 2024-09-12 11:13 | Outpatient (REF) | payer MEDICARE, SELFPAY ==
--- NOTE | 2024-09-12 13:03 | ECG_ITS ---
Test Reason : preop Blood Pressure : */* mmHG Vent. Rate : 54 BPM Atrial Rate : 54 BPM P-R Int : 180 ms QRS Dur : 90 ms QT Int : 422 ms P-R-T Axes : 34 29 44 degrees QTcB Int : 400 ms Sinus bradycardia with sinus arrhythmia Otherwise normal ECG No previous ECGs available Referred By: Timothy Sandoval Electronically Signed By: Bartolo Pal
== END ==
LOC: HO.CARD 11:13
PROVIDERS: PCP Internal Medicine; Visit Provider Surgery
DX: Z01.818 Encounter for other preprocedural examination (principal); K44.9 Diaphragmatic hernia without obstruction or gangrene
CPT/HCPCS: 93005; 99202

== ENCOUNTER → 2024-09-12 13:03 | Outpatient (BNV) | payer MEDICARE, SELFPAY | PROVIDERS: PCP Internal Medicine; Visit Provider Internal Medicine Cardiovascular Disease | DX: I49.9 Cardiac arrhythmia, unspecified (principal); R00.1 Bradycardia, unspecified | CPT/HCPCS: 93010 ==

== ENCOUNTER 2024-09-13 08:43 | Outpatient (AMB) | payer MEDICARE, SELFPAY ==
--- NOTE | 2024-09-13 08:44 | MHC.OFFVIS ---
Intake Visit Reasons: s/p egd Intake Note: Kevin presents as a telehealth to go over EGD results. CC: I called patient because he has a BA swallow coming up to see if we could reschedule - he states that he spoke with Dr Sousa and he said that the patient does not need the BA swallow as he is going to do the surgery to fix his hiatal hernia! He wants to discuss this further with you! Hand Stoner Required: No Allergies No Known Allergies Allergy (Verified 10/20/24 13:43) HPI Comments Details: 78 y.o M with PMH who is here for positive cologuard. Pt reports changes in bowel habits that started in 2020 but worsened over the last 6 months. Noticed stools were thinner. At one point also developed severe constipation. Sometimes also has a R upper side fleeting pain. Occ has noticed blood in stool geraldine while straining. Reports fatigue, decreased stamina for around the same duration. Also thinks has lost appetite. Thinks clothes are a bit though no significant weight loss in the EMR. Last colo was 20 years ago. PCP ordered cologuard in September which was POSITIVE. No fam hx of CRC. Mat grandmother may have had stomach ca. 06/15/24: 1. GE junction ulcer (biopsy) 2. Angelo erosions 3. Antral gastritis (biopsy) 4. Normal duodenum (biopsy) 5. Normal colon and terminal ileum mucosa (biopsy) 6. One polyp removed 7. Diverticulosis 8. Internal and external hemorrhoids Path: A. Duodenum, biopsy: Duodenal mucosa within normal limits. B. Stomach, antrum, biopsy: Scant small fragment of fibrous tissue; no gastric tissue identified. C. Stomach, body, biopsy: Oxyntic mucosa with mild chronic inactive inflammation; no Helicobacter organisms seen. D. GE junction, edge of ulcer, biopsy: - Cardiac-type mucosa with mild chronic inactive inflammation and surface hyperplastic changes; no intestinal metaplasia seen. - Active esophagitis (neutrophils). E. Colon, right, biopsy: Colonic mucosa within normal limits. F. Colon, left, biopsy: Colonic mucosa within normal limits. G. Colon, descending, polypectomy: Traditional serrated adenoma with high-grade dysplasia; multiple additional levels examined 06/29/24: Here for follow up. Results already sent over the portal and pt has no questions. Pt reports stools are actually more regular now, caliber fine. No blood in stools. See above - CTE ordered for ? IC narrowing noted on colo. Willa 07/14. 09/13/24: Here for televisit follow up after EGD 09/08/24 which was concerning for gastric volvulus reduced endoscopically. He has since then been seen by Dr Sandoval and plan is for paraesophageal hernia repair next month. Dietary intervention has been initiated with protein supplements and bars to support muscle mass increase for upcoming surgery. Omeprazole continues at twice daily dosage. Barium swallow study canceled, as previous imaging was satisfactory. Future colonoscopy planned in three years. Reports improved gastrointestinal function. [facility] Medical History (Updated 10/20/24 @ 00:00 by Kemar Amaro) Personal history of colonic polyps Ulcer, esophagus Kidney cysts Positive colorectal cancer screening using Cologuard test Renal cyst Vitamin B 12 deficiency Hyperlipidemia HTN (hypertension) Surgical History Hx of bilateral cataract extraction Hx of cornea transplant Hx of right inguinal hernia repair Hx of left inguinal hernia repair Hx of colonoscopy (06/09/24) History of esophagogastroduodenoscopy (EGD) (06/09/24) Family History Father Hodgkin disease Mother No problems noted. 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/[place] Housing: House Are you a primary technical healthcare consultant to a significant other at home: No Do you presently have visiting nurse or other home services: No Alcohol intake: current Alcohol intake frequency: a few times a week Patient Tobacco Use Status: Never used Tobacco e-Cigarette/Vaping Use: Never Used service: No Current occupational status: retired Cognitive needs: No Hearing needs: No Vision needs: No Review of Systems Const All systems reviewed & are unremarkable except as noted in HPI and below Physical Exam phone visit Telehealth Telehealth Telehealth Platform: Telephone Location of provider rendering services: practice address Location of patient: address on file Patient Identification confirmed using: Name, : Yes Telehealth method: voice only Patient verbally consented to treatment: Yes Patient verbally consented to billing insurance company: Yes Patient informed of any privacy concerns related to visit: Yes Minutes spent on Phone/Video with Pt.: 12 Assessment & Plan Assessment & Plan (1) Paraesophageal hernia: Code(s): K44.9 - Diaphragmatic hernia without obstruction or gangrene Category: Medical (2) Ulcer, esophagus: Code(s): K22.10 - Ulcer of esophagus without bleeding Category: Medical (3) Personal history of colonic polyps: Code(s): Z86.0100 - Personal history of colon polyps, unspecified Category: Medical (4) Serrated polyp of colon: Code(s): K63.5 - Polyp of colon Category: Medical (5) Ileocecal valve stenosis: Code(s): K63.89 - Other specified diseases of intestine Plan 1. Paraesophageal hernia with gastric volvulus noted during EGD 09/08 - reduced. referred to surgery - surgery willa next month. 2. Esophagitis with esophageal ulcer. This has now healed up. Plan: - Continue on b.i.d. omeprazole until surgery completed 3. Patient with serrated adenoma with high-grade dysplasia on colonoscopy. Repeat colo due in 2027 Coding Level of Care Code Tele Est Pt Level 4 (40415) Diagnoses Paraesophageal hernia K44.9 Ulcer, esophagus K22.10 Personal history of colonic polyps Z86.0100 Serrated polyp of colon K63.5 Ileocecal valve stenosis K63.89
== END 2024-09-13 10:52 | disposition home or self-care (01) ==
LOC: HO.HGI 08:43
PROVIDERS: PCP Internal Medicine; Visit Provider Internal Medicine
DX: K44.9 Diaphragmatic hernia without obstruction or gangrene (principal); K22.10 Ulcer of esophagus without bleeding; Z86.0100 Personal history of colon polyps, unspecified; K63.5 Polyp of colon; K63.89 Other specified diseases of intestine
CPT/HCPCS: 99499

== ENCOUNTER 2024-09-27 08:12 | Outpatient (AMB) | payer MEDICARE, SELFPAY ==
[2024-09-26 22:36] VITALS: BMI 25.2
--- NOTE | 2024-09-26 22:36 | A.OFFVIS_ITS ---
VS Expanded 09/26/24 22:36 Height 5 ft 9 in Weight 171 lb BMI 25.2 Body Fat % 23.9 Body Fat Mass 40.8 Fat Free Mass 130.2 Visceral Fat Rating 8 Body Water % 55 Body Water Mass 94 Basal Metabolic Rate/Score 1,647 Intake Visit Reasons: TV Pre Op Paraesophageal Hernia 10/11/24 Allergies No Known Allergies Allergy (Verified 09/26/24 22:39) Medication List - Last Reconciled 09/26/24 by Timothy Sandoval MD atorvastatin 20 mg PO BEDTIME dorzolamide-timolol 22.3-6.8 mg/mL 1 drp ophthalmic (eye) BID latanoprost 0.005% 1 drp ophthalmic (eye) BEDTIME multivitamin 1 tab PO DAILY olmesartan 40 mg PO DAILY omeprazole 20 mg PO BID 90 days ondansetron 4 mg PO Q12H polyethylene glycol 3350 17 grams PO DAILY sucralfate 10 mL PO Q6H [zyflamend PO] HPI HPI TV Pre Op Paraesophageal Hernia 10/11/24: Details: Start time: 8.30am, End time: 9am I spent 25 minutes speaking with the patient on the phone plus an additional 5 minutes reviewing and updating records for a total of 30 minutes HPI Comments Details: This is the preop of paraesophageal hernia repair [facility] Medical History Vitamin B 12 deficiency Annual physical exam Hyperlipidemia HTN (hypertension) Surgical History Hx of cornea transplant Hx of right inguinal hernia repair Hx of left inguinal hernia repair Hx of colonoscopy (06/09/24) History of esophagogastroduodenoscopy (EGD) (06/09/24) History of esophagogastroduodenoscopy (EGD) H/O colonoscopy Family History Father Hodgkin disease Mother No problems noted. 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, friend in [facility]/[place] Housing: House Alcohol intake: current Alcohol intake frequency: a few times a week Patient Tobacco Use Status: Former Tobacco user e-Cigarette/Vaping Use: Never Used service: No Current occupational status: retired Cognitive needs: No Hearing needs: No Vision needs: No Physical Exam Vital Signs: BMI result Body Mass Index 25.2 Telehealth Telehealth Telehealth Platform: Telephone Location of provider rendering services: practice address Location of patient: address on file Patient Identification confirmed using: Name, : Yes Telehealth method: voice only Patient verbally consented to treatment: Yes Patient verbally consented to billing insurance company: Yes Patient informed of any privacy concerns related to visit: Yes Minutes spent on Phone/Video with Pt.: 30 Assessment & Plan Assessment & Plan (1) Paraesophageal hernia with gastric volvulus: Code(s): K44.9 - Diaphragmatic hernia without obstruction or gangrene; K31.89 - Other diseases of stomach and duodenum Category: Medical Plan: 1. We discussed the potential etiology of the hernia that could be of traumatic etiology. We discussed the details of the diaphragmatic hernia repair and the potential technical challenges such as being able to achieve enough mobilization of the esophagus back in the abdomen and being able to close the diaphragmatic muscle (crura) primarily with sutures. We also discussed the possibility of using a biologic mesh to close the hernia defect if the crura cannot be adequately re-approximated primarily with sutures. We also discussed the option of doing a gastropexy or a fundoplication to prevent postoperative reflux and prevent hernia recurrence. As we discussed, I favor the gastropexy as the fundoplication can cause several distrurbing symptoms such as gas-bloating, flatulence, inability to burp which can be bothersome to patients especially for him with a history of IBS. Also we discussed the complexity of a potential hernia recurrence in association with a hernia recurrence. He was in agreement not to have a fundoplication. We also discussed that after surgery, he will need to be on a liquid diet with protein shakes the first week. The second week will add protein bars and soft foods and after the third week we will introduce small amounts of regular food. The transition to normal eating habits will take about 6 weeks which is the time required for the repair to heal completely. 2. Preop prescriptions were provided and explained the purpose of each one. Need to be purchased preop. Continue the Pantoprazole and the Sucralfate. Zofran is for after surgery as needed. 3. Bowel prep: please do 7 packets of Miralax mixing each one with a an 8oz glass of water, crystal light, gatorade zero, or propel on 10/09/24 and the same amount on 10/10/24. The Miralax you begin with one packet at a time in 8oz water or crystal light, gatorade zero, or propel as early in the day as you can and you do them back to back until you finish them. Continue the protein shakes during the bowel prep. 4. Needs to purchase 1oz medicine cups . 5. Needs to purchase Children's liquid Tylenol for postop pain control. 6. Avoid aspirin, motrin, Advil, Aleve, Ibuprofen, Naproxyn. Tylenol is OK. 7. Will do basic preop blood work-up any day between Thursday10/03/24 and Thursday10/07/24 fasting for 12 hours and is scheduled to see the Anesthesiologist prior to the day of surgery. 8. Importance of adherence to postop folllow-up and recommendations was underscored and she understands that. 9. Stop food and bars as of Thursday10/05/24 and continue with 4 Celebrate REBUILD protein shakes (ONE scoop EACH in 8oz almond milk) at 7am-9am, 10am- 12pm, 1pm-3pm, 4pm-6pm and one more Celebrate REBUILD protein shake with TWO scoops in 8oz of almond milk at 7pm-9pm 10. No soups, broths or V8 11. The patient's medical history has been reviewed and they are considered low risk for post op DVT and therefore DVT prophylaxis is not considered necessary. Travel after surgery was reviewed. The patient has not disclosed any travel plans during the first 30 days after surgery and they have been advised that within the first 30 days after surgery any bus, plane, train or car travel over 2 hours in duration is contraindicated due to the possibility of developing blood clots from immobility. Any travel, needs to include periods of ambulation of 10 minutes in duration every 2 hours. Patient was instructed to discuss any plans for travel during this period with their surgeon. 12. As of tomorrow, please check your blood pressure daily in the morning. If your blood pressure is: Below 120/70 do not take the Olmesartan 121/71 to 130/80: take HALF Olmesartan Over 131/81: take the whole Olmesartan 13. Please take at the day of surgery the following medications: Only the Olmesartan if the blood pressure reading that morning is high enough to justify it based on the parameters above. 14. Absolutely no smoking or vaping, or marijuana until the surgery and for at least the first 4 weeks. Only nicotine patches are allowed. 15. Send me weight measurements on Thursday09/28/24, 10/05/24 and then on Thursday10/11/24, the day of surgery before you go to the hospital. 16. Avoid any steroids by mouth for any reason. Let me know if someone prescribes them to you 17. These instructions supersede anything else you read in the handbook, anythin g you watched in videos or classes or you were told by any other provider. If there is any conflict, you follow the above instructions and nothing else. Orders: Orders Comprehensive Met. Panel 09/26/24 E78.5 - Hyperlipidemia, unspecified, I10 - Essential (primary) hypertension, K44.9 - Diaphragmatic hernia without obstruction or gangrene TSH reflex Free T4 09/26/24 E78.5 - Hyperlipidemia, unspecified, I10 - Essential (primary) hypertension, K44.9 - Diaphragmatic hernia without obstruction or gangrene Vitamin A 09/26/24 E78.5 - Hyperlipidemia, unspecified, I10 - Essential (primary) hypertension, K44.9 - Diaphragmatic hernia without obstruction or gangrene Hemoglobin A1c 09/26/24 E78.5 - Hyperlipidemia, unspecified, I10 - Essential (primary) hypertension, K44.9 - Diaphragmatic hernia without obstruction or gangrene Vitamin B1 09/26/24 E78.5 - Hyperlipidemia, unspecified, I10 - Essential (primary) hypertension, K44.9 - Diaphragmatic hernia without obstruction or gangrene Lipid Panel 09/26/24 E78.5 - Hyperlipidemia, unspecified, I10 - Essential (primary) hypertension, K44.9 - Diaphragmatic hernia without obstruction or gangrene Type and Screen 09/26/24 E78.5 - Hyperlipidemia, unspecified, I10 - Essential (primary) hypertension, K44.9 - Diaphragmatic hernia without obstruction or gangrene Vitamin B12 09/26/24 E78.5 - Hyperlipidemia, unspecified, I10 - Essential (primary) hypertension, K44.9 - Diaphragmatic hernia without obstruction or gangrene Complete Blood Count Auto Diff 09/26/24 E78.5 - Hyperlipidemia, unspecified, I10 - Essential (primary) hypertension, K44.9 - Diaphragmatic hernia without obstruction or gangrene IRON PROFILE 09/26/24 E78.5 - Hyperlipidemia, unspecified, I10 - Essential (primary) hypertension, K44.9 - Diaphragmatic hernia without obstruction or gangrene Prothrombin Time INR 09/26/24 E78.5 - Hyperlipidemia, unspecified, I10 - Essential (primary) hypertension, K44.9 - Diaphragmatic hernia without obstruction or gangrene C Reactive Protein 09/26/24 E78.5 - Hyperlipidemia, unspecified, I10 - Essential (primary) hypertension, K44.9 - Diaphragmatic hernia without obstruction or gangrene Partial Thromboplastin Time 09/26/24 E78.5 - Hyperlipidemia, unspecified, I10 - Essential (primary) hypertension, K44.9 - Diaphragmatic hernia without obstruction or gangrene Vitamin D 25-OH Total 09/26/24 E78.5 - Hyperlipidemia, unspecified, I10 - Essential (primary) hypertension, K44.9 - Diaphragmatic hernia without obstruction or gangrene Ferritin 09/26/24 E78.5 - Hyperlipidemia, unspecified, I10 - Essential (primary) hypertension, K44.9 - Diaphragmatic hernia without obstruction or gangrene Zinc 09/26/24 E78.5 - Hyperlipidemia, unspecified, I10 - Essential (primary) hypertension, K44.9 - Diaphragmatic hernia without obstruction or gangrene Insulin 09/26/24 E78.5 - Hyperlipidemia, unspecified, I10 - Essential (primary) hypertension, K44.9 - Diaphragmatic hernia without obstruction or gangrene Medications: New polyethylene glycol 3350 17 grams PO DAILY 238 grams 0RF Z01.818 - Encounter for other preprocedural examination ondansetron 4 mg PO Q12H 20 tabs 0RF nausea and vomiting R11.0 - Nausea
== END 2024-09-27 12:46 | disposition home or self-care (01) ==
LOC: HO.HBS 08:12
PROVIDERS: PCP Internal Medicine; Visit Provider Surgery
DX: K44.9 Diaphragmatic hernia without obstruction or gangrene (principal); K31.89 Other diseases of stomach and duodenum
CPT/HCPCS: 99214

== ENCOUNTER 2024-10-11 06:04 | Inpatient (IN) | payer MEDICARE, SELFPAY ==
[2024-10-04 10:36] VITALS: BMI 25.1
[2024-10-05 11:25] LABS: MANUAL DIFF FLAG NO
[2024-10-05 12:00] LABS: Hematocrit 39.9 % (42.0-52.0); Hemoglobin 13.7 g/dl (14.0-18.0); Imm Gran Abs Auto 0.01 X10*3/uL (0.00-0.03); Imm Gran Pct Auto 0.1 % (0.0-0.4); Lymphocytes Absolute Auto 1.2 X10*3/uL (1.2-4.9); Mean Corpuscular HGB Conc 34.3 g/dl (31.0-36.0); Mean Corpuscular Hemoglobin 33.7 pg (27.0-33.0); Mean Corpuscular Volume 98.0 fL (80.0-98.0); NRBC Abs Auto 0.000 X10*3/uL (0.0-0.012); NRBC Pct Auto 0.0 /100WBC (0.0-0.2); Platelet Count 221 X10*3/uL (160-400); Red Blood Count 4.07 X10*6/uL (4.60-5.80); White Blood Count 6.8 X10*3/uL (4.8-10.8)
[2024-10-05 12:08] LABS: INTERNATIONAL NORM RATIO 1.1 (0.9-1.1); Prothrombin Time 12.8 SEC (10.9-12.4)
[2024-10-05 12:11] LABS: Partial Thromboplastin Time 30.4 SEC (26.7-34.1)
[2024-10-05 13:07] LABS: Hemoglobin A1C 138.1740 umol/L; Total Hemoglobin (HGBA1C) 3691.6049 umol/L
[2024-10-05 13:48] LABS: Alanine Aminotransferase 16 U/L (0-40); Albumin Level 4.2 g/dL (3.5-5.0); Alkaline Phosphatase 69 U/L (39-117); Anion Gap 12 (12-20); Aspartate Amino Transferase 20 U/L (5-37); Blood Urea Nitrogen 24 mg/dL (9-16); Calcium 9.0 mg/dL (8.4-10.2); Carbon Dioxide 26 mmol/L (22-29); Chloride 107 mmol/L (96-108); Cholesterol 114 mg/dL (<200); Creatinine Clr Calc Pharmacy 60.1; Estimated Glomerular Filt Rate > 60; HDL Cholesterol 40 mg/dL (>40); Iron 112 mcg/dL (45-160); Percent Iron Saturation 45 % (15-50); Potassium 4.1 mmol/L (3.3-5.1); Sodium 141 mmol/L (135-145); Total Iron Binding Capacity 249 mcg/dL (228-428); Total Protein 6.8 g/dL (6.5-8.0); Triglycerides 55 mg/dL (<150); Unsaturated Iron Binding 137 ug/dL
[2024-10-05 14:12] LABS: Ferritin 215 ng/mL (20-250); Vitamin B12 618 pg/mL (200-900)
--- NOTE | 2024-10-10 09:38 | HO.ANESPROP2 ---
Documented by User: Rubi Goel NP 10/10/24 09:39 HPI - Anesthesia Eval Consult details Narrative: 79yo M for Repair Hernia Diaphragmatic Lap Reducible PMFSH Active Problems Active Problems: All Active Problems Paraesophageal hernia (Acute) Paraesophageal hernia with gastric volvulus (Acute) Serrated polyp of colon (Acute) Personal history of colonic polyps (Acute) Ulcer, esophagus (Acute) Kidney cysts (Acute) Gallstone (Acute) Unintentional weight change (Acute) Change in bowel habit (Acute) Fatigue (Acute) Positive colorectal cancer screening using Cologuard test (Acute) Constipation (Acute) Decline in verbal memory (Acute) Vitamin D deficiency (Acute) Annual physical exam (Acute) Vitamin B 12 deficiency (Acute) Hyperlipidemia (Acute) HTN (hypertension) (Acute) Past Medical History Medical History Renal cyst Vitamin B 12 deficiency Hyperlipidemia HTN (hypertension) Family History Family History Father Hodgkin disease Mother No problems noted. 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 If so, by whom?: No Spiritual Healthcare Practices: no Gnosticist Healthcare Practices: no Cultural Healthcare Practices: no Are you DNR?: No Advance Directives on File: No Poor oral hygiene: No service: No Current occupational status: retired Cognitive needs: No Hearing needs: No Vision needs: No Meds Allergies Allergy/AdvReac Type Severity Reaction Status Date / Time No Known Allergies Allergy Verified 09/26/24 22:39 Home Medications ?Medication ?Instructions ?Recorded ?Confirmed ?Last Taken ?Type multivitamin 1 tab PO QAM 12/13/20 10/04/24 Unknown History latanoprost 0.005 % eye drops 1 drp ophthalmic (eye) BEDTIME 09/10/22 10/04/24 Unknown History dorzolamide 22.3 mg-timolol 6.8 1 drp ophthalmic (eye) BID 09/12/24 10/04/24 Unknown History mg/mL eye drops olmesartan 40 mg tablet 40 mg PO QAM 10/04/24 10/11/24 10/11/24 06:21 History Exam Height,Weight and Vital Signs: Height 5 ft 9 in Weight 77.111 kg Pertinent Lab Results Pertinent Lab Results: Laboratory Tests 10/05/24 10/05/24 11:08 11:22 WBC 6.8 RBC 4.07 L Hgb 13.7 L Hct 39.9 L MCV 98.0 MCH 33.7 H MCHC 34.3 RDW 13.5 Plt Count 221 MPV 11.1 Immature Gran % (Auto) 0.1 Neut % (Auto) 67.8 Lymph % (Auto) 17.2 L [place] % (Auto) 8.5 Eos % (Auto) 5.7 H Baso % (Auto) 0.7 Lymph # (Auto) 1.2 [place] # (Auto) 0.6 Eos # (Auto) 0.4 Baso # (Auto) 0.1 Abs Immat Gran (auto) 0.01 Absolute Neuts (auto) 4.6 Absolute Nucleated RBC 0.000 Nucleated RBC % (auto) 0.0 PT 12.8 H INR 1.1 APTT 30.4 Sodium 141 Potassium 4.1 Chloride 107 Carbon Dioxide 26 Anion Gap 12 BUN 24 H Creatinine 0.98 Estim Creat Clear Calc 60.1 Estimated GFR > 60 Random Glucose 103 Estimat Average Glucose 114 Hemoglobin A1c % 5.6 Insulin Level 6 Calcium 9.0 Iron 112 TIBC 249 % Saturation 45 Unsat Iron Binding 137 Ferritin 215 Total Bilirubin 1.1 H AST 20 ALT 16 Alkaline Phosphatase 69 C-Reactive Protein < 0.10 Total Protein 6.8 Albumin 4.2 Triglycerides 55 Cholesterol 114 LDL Cholesterol, Calc 63 HDL Cholesterol 40 L Vitamin B12 618 25-OH Vitamin D Total 31.3 TSH 0.96 Zinc 78 Blood Type O Positive Antibody Screen NEGATIVE Narrative Narrative: EKG 09/2024 Vent. Rate : 54 BPM Atrial Rate : 54 BPM P-R Int : 180 ms QRS Dur : 90 ms QT Int : 422 ms P-R-T Axes : 34 29 44 degrees QTcB Int : 400 ms Sinus bradycardia with sinus arrhythmia Otherwise normal ECG No previous ECGs available Assessment and Plan Assessment Anesthesia Assessment: Chart Reviewed Final Anesthetic Review Family History of Problems with Anesthesia: No History of Problems with Anesthesia: No Documented by User: Kathleen Morillo MD 10/11/24 07:13 [facility] Past Medical History Medical History Renal cyst Vitamin B 12 deficiency Hyperlipidemia HTN (hypertension) Family History Family History Father Hodgkin disease Mother No problems noted. 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 If so, by whom?: No Spiritual Healthcare Practices: no Gnosticist Healthcare Practices: no Cultural Healthcare Practices: no Are you DNR?: No Advance Directives on File: No Poor oral hygiene: No service: No Current occupational status: retired Cognitive needs: No Hearing needs: No Vision needs: No Meds Allergies Allergy/AdvReac Type Severity Reaction Status Date / Time No Known Allergies Allergy Verified 09/26/24 22:39 Home Medications ?Medication ?Instructions ?Recorded ?Confirmed ?Last Taken ?Type multivitamin 1 tab PO QAM 12/13/20 10/04/24 Unknown History latanoprost 0.005 % eye drops 1 drp ophthalmic (eye) BEDTIME 09/10/22 10/04/24 Unknown History dorzolamide 22.3 mg-timolol 6.8 1 drp ophthalmic (eye) BID 09/12/24 10/04/24 Unknown History mg/mL eye drops olmesartan 40 mg tablet 40 mg PO QAM 10/04/24 10/11/24 10/11/24 06:21 History Exam Airway Mallampati Class: II (implant right lateral,bridge bottom right permanent) TM Dist: >3cm Neck ROM: Full Heart: rrr Lungs: cta Assessment and Plan Assessment Anesthesia Assessment: Anesthesia Plan Discussed Final Anesthetic Review NPO: Yes ASA Class: II Final Preanesthetic Review: No Changes in Pt Med Stat, Meds/Allgs Chart Reviewed and Consent Obtained/Reviewed Patient Risk: Intermediate Procedure Risk: Intermediate Anesthetic Plan Anesthetic Plan: GA Disposition: Standard PACU
[2024-10-11] VITALS (14 sets, daily range): BP systolic 100–136; BP diastolic 48–91; PULSE 53–81; RESP 12–18; TEMP 35.3–36.6; O2SAT 96–100; BMI 24.3
[2024-10-11] MEDS: Aprepitant 32 MG/4.4 ML VIAL IVPUSH (06:33)
[2024-10-11] MEDS: Lactated Ringers 1,000 ML 999 ML IV (06:33)
--- NOTE | 2024-10-11 07:29 | MHC.SHP ---
Pre-Procedural Eval Section A - 24 Hr Update-Section A only Date of Service: 10/11/24 The patient is an INPATIENT: Yes The patient has been examined within 24 hours of the surgical procedure. The History & Physical has been completed within 30 days and I have reviewed it.: Yes Section B - Complete if H&P > 30 days Chief Complaint: Paraesophageal hernia Relevant Family History (Specify if Yes): No Relevant Social History: None Present Medications: None Medical History: No relevant PMH History of Previous Operations: No relevant previous surgery Allergies: Allergies Allergy/AdvReac Type Severity Reaction Status Date / Time No Known Allergies Allergy Verified 09/26/24 22:39 Review of Systems Sugical H&P ROS: Negative: Constitution, Cardiovascular, Respiratory, Neurological, Psychiatric, Hem-Onc, Allergic/Immunologic, Gastrointestinal, Genitourinary, Musculoskeletal, Integumentary, Endocrine and Eyes/Ears/Nose/Throat Exam Surgical H&P Exam: Normal: HEENT, Normal: Heart, Normal: Lungs, Normal: Extremities, Normal: Abdomen, Normal: Skin and Normal: Neurological Plan Diagnosis/Plan: Unchanged I have reviewed the history and physical and performed a pertinent physical examination on my patient. No changes have occurred unless specified. Time Spent With Patient Time: Total time managing care of this patient today ____ minutes.
--- NOTE | 2024-10-11 07:37 | PM.OP ---
Brief Operative Note Date of Service: 10/11/24 Pre-op diagnosis: Paraesophageal hernia Post-op diagnosis: same Procedure: Date of Service: 10/11/2024 Pre-op diagnosis: Diaphragmatic hernia Post-op diagnosis: same with chronic gastric volvulus Procedure: Procedure: COMORBIDITIES: GERD, diaphragmatic hernia, hyperlipidemia, anxiety, depression, hypertension, knee pain ?INDICATIONS: The patient is a 79 year old male who was referred to me from Dr. Brooks for a diaphragmatic hernia and GERD confirmed by EGD, CT and CT Enterography. The patient is scheduled today for diaphragmatic hernia repair. Risks of recurrent hernia, dysphagia, persistent GERD, VTE, leak, infection and bleeding were discussed with the patient and he is in agreement with the plan. PROCEDURE: Esophago-gastroscopy, laparoscopic lysis of adhesions, laparoscopic repair of incarcerated diaphragmatic hernia and laparoscopic gastropexy. DESCRIPTION OF PROCEDURE: After informed consent was obtained from the patient, the patient was given preoperative antibiotics, and was transferred to the operating room. After successful induction of general anesthesia, pneumatic compression devices were placed on both lower extremities. An upper endoscopy was performed next. The oropharynx and upper esophagus appeared to be within normal limits. The stomach was entered and the scope was advanced all the way to the pylorus.? After all fluid and air were suctioned and the stomach was fully decompressed, the scope was withdrawn and secured in the mid esophagus. The patient was then prepped and draped in the usual sterile manner. Abdominal access was established at the right upper quadrant with the Neto technique. A 12 mm blunt trocar was inserted and the abdomen was insufflated with CO2 to a pressure of 15 mmHg. Following that additional ports were placed, specifically two 5 mm Versi-step ports to the left upper and one 5 mm Versi-step to the right upper quadrant. 1% lidocaine plain was used to infiltrate all port sites as well as all fascia defects. Following that, the patient was placed in a steep reverse Trendelenburg position. An additional 5 mm port was placed to the right flank for the Mediflex retractor that was used to retract the left lobe of the liver. There was a moderate size diaphragmatic hernia hernia present. I then opened the gastrocolic ligament between the transverse colon and the greater curvature of the stomach with the ultrasonic device to enter the lesser sac and facilitate the ligation of the short gastric vessels. I started at at the upper third along the greater curvature and using the Thunderbeat, all attachments were divided. This was extremely difficult and tedious because the posterior stomach was densely adherent due to adhesions to the pancreas. In addition, the gastric fundus was very large and the entire proximal stomach was pushed near the diaphragm. Once the proximal stomach was fully mobilized, it was clear that the stomach was incarcerated into the mediastinum with multiple thick adhesions. Mobilization of the stomach was very difficult and required tedious and careful dissection of the proximal short gastric vessels. I continued dissecting along the hiatus toward the left iris into the mediastinum mobilizing the hernia sac from the mediastinum. The left iris was also very adherent to the aorta making dissection very difficult The esophagus was carefully dissected off the aorta. The pleura spaces were not violated in either side. The pars flaccida was opened. It was actually herniated into the hernia defect. The vena cava was not dilated and it was carefully protected. I then continued by dissecting even further into the posterior retro-esophageal space all the way to the angle of His. I continued to mobilize the esophagus into the mediastinum circumferentially. The esophagus was densely adhrent to the aorta and the majority of these adhesions were mobilized. Both vagal nerves were seen and preserved. With extensive circumferential dissection into the mediastinum, I was able to bring the GE junction at least 3cm below the crura. I closed the hernia defect with four interrupted #0 Surgidac sutures using the Endo Stitch device, three of which were placed posterior and one of which anterior to the esophagus. The bites were carefully placed to include both the ventral and dorsal aspect of the two crura, advancing slightly more at the left iris as it was located more diagonally than the right. ? A gastropexy was then performed in order to prevent postoperative GERD and recurrent gastric volvulus. Several interrupted 2.0 Surgidac sutures were placed between the greater curvature of the dissected stomach and the previously divided greater omentum and gastro-colic ligament using the Endo-Stitch device. ?An upper endoscopy was performed. There was no narrowing at the GE junction or any esophageal injury. The scope was easily advanced all the way to the pylorus which was clearly visualized. There was no narrowing anywhere. I confirmed that the GE junction was 3cm intra-abdominally. At that point the gastroscope was withdrawn from the patient?s mouth while we were decompressing the bowel and the stomach from any remaining air. I looked into the lesser sac to see how the stomach was situating and it was situating well. There was no bleeding from the, spleen, or short gastric vessels. The Mediflex retractor was removed, and the undersurface of the liver was inspected and there was no bleeding. The patient was placed in supine position. Then 30cc of Ropivacaine plain with 10 mg of Dexamethasone were used to infiltrate the fascial closure as well as all skin incisions. At this point, the abdomen was deflated, all ports were removed under direct vision, and no bleeding was noted from any of the port sites. The skin incisions were irrigated with saline and were closed with 4-0 absorbable monofilament sutures. Steri-Strips and OpSites were used to cover all incisions. The patient was extubated and was transferred in stable condition to the recovery room for further care. I was present and performed all bobby parts of the procedure. Davis was the first officer and flight instructor. There were no residents to assist with this case. Sundar Sandoval MD, PhD, FACS Surgeon: Timothy Sandoval MD Anesthesia: GETA, local and other (TAP block) Was an Events Intern used for this Procedure?: No Events Intern: Carlos Davis Estimated blood loss (mL): 10 IV fluids (mL): 1,700 Urine output (mL): 0 (No Masterson to record output) Pathology: none sent Condition: stable Disposition: PACU
--- NOTE | 2024-10-11 07:40 | P.PNGS_ITS ---
Subjective Subjective Date of Service: 10/12/24 Interval history: Feels well. Mild incisional pain. He is tolerating phase 1 bariatric diet Physical Exam 2 Vital Signs: Vital Signs: Last Vital Signs Temp 97.1 F 10/11/24 06:27 Pulse 67 10/11/24 06:27 Resp 16 10/11/24 06:27 BP 123/80 10/11/24 06:27 Pulse Ox 98 10/11/24 06:27 O2 Del Method Room Air 10/11/24 06:27 BMI result Body Mass Index 24.3 GI: Inspection: Yes normal to inspection and Yes incision (clean, dry and intact) Palpation (GI): Soft to palpation Extrem: Right lower extremity: normal to inspection (no calf tenderness) L eft lower extremity: normal to inspection (no calf tenderness) Objective Data Active Medications Fentanyl (Fentanyl Citrate/Pf 100 Mcg/2 Ml Vial) 50 mcg IVPUSH Q5M PRN PRN Reason: Pain, Moderate to Severe (Pain Scale 4-10) Stop: 10/11/24 13:14 Lactated Ringer's (Lr) 1,000 mls @ 100 mls/hr IVCONT .Q10H DEN Stop: 10/11/24 10:14 Naloxone HCl (Naloxone Hcl 0.4 Mg/Ml Vial) 0.04 mg IVPUSH Q5M PRN PRN Reason: Excessive sedation or RR < 8 Ondansetron HCl (Ondansetron Hcl 4 Mg/2 Ml Vial) 4 mg IVPUSH ONCE PRN PRN Reason: Nausea and Vomiting Stop: 10/11/24 13:14 Oxycodone HCl (Oxycodone Hcl Immed Release 5 Mg Tablet) 5 mg PO ONCE PRN PRN Reason: Pain, Moderate(Pain Scale 4-6) if no IV Access Stop: 10/11/24 13:14 Labs 10/12/24 05:31 10/12/24 05:31 Labs: Laboratory Results - last 24 hr 10/05/24 11:22 Vitamin A 46 Procedures Date of Service Date of Service: 10/12/24 Progress Note: A&P Assessment and plan (1) HTN (hypertension): Status: Acute Assessment and Plan: s/p laparoscopic lysis of adhesions, diaphragmatic hernia repair and gastropexy Doing well Will check am labs and if OK the patient will be discharged home (2) Hyperlipidemia: Status: Acute (3) Paraesophageal hernia with gastric volvulus: Status: Acute (4) Congenital intra-abdominal adhesions: Status: Acute Time Spent With Patient Time: Total time managing care of this patient today ____ minutes. Quality Stroke Does the patient have a stroke diagnosis?: No VTE Prior VTE?: No VTE Risk Level:: Surgical - moderate VTE Device Contraindication: N/A - Device Ordered VTE Drug Contraindication: Treatment Not Indicated
--- NOTE | 2024-10-11 07:54 | PHA.MEDREC ---
Pharmacy Consult ? Medication Reconciliation Pharmacy has reviewed the medication reconciliation completed by nursing.
--- NOTE | 2024-10-11 10:26 | P.DS_ITS ---
DS: Providers Provider Date of Service: 10/12/24 Date of admission: 10/11/24 06:04 Date of discharge: 10/12/24 Primary care physician: Thea Navas MD DS: Diagnosis Discharge Diagnosis (1) HTN (hypertension): Status: Acute (2) Hyperlipidemia: Status: Acute (3) Paraesophageal hernia with gastric volvulus: Status: Acute DS: Summary Hospital Course Hospital Course: ADMITTING DIAGNOSIS: gerd, hiatal hernia, hyn, hld, , ? DISCHARGE DIAGNOSIS: same, s/p laparoscopic repair diaphragmatic hernia ? PAST SURGICAL HISTORY: bilateral inguinal hernia repair ? PROCEDURE: upper endoscopy, laparoscopic repair of diaphragmatic hernia ? DISCHARGE SUMMARY: ? History of Present Illness: ? The patient is a?79 year-old man with a BMI of?24.3 kg/m2 and associated co- morbidities as described above. The patient had extensive work-up, and was electively scheduled for laparoscopic, possible open repair of hiatal hernia and gastropexy. Risks and complications of the surgery were discussed with the patient in advance, particularly the possibility of , pulmonary embolism, anastomotic leak, bleeding, bowel injury, GERD, cardiac, renal or pulmonary com plications. The patient understood all the risks and was in agreement with the surgical plan. ? Hospital Course: ? The patient underwent an uneventful laparoscopic repair of hiatal hernia with gastropexy on the day of admission. Postoperatively, the patient was transferred to the surgical floor. The patient received IV Acetaminophen and IV dilaudid for pain control. Patient was started on bariatric phase 1 diet POD #0. On postoperative day one, the patient was feeling well without nausea, vomiting, fevers, or tachycardia. The patient had some mild incisional pain and the abdomen was soft. ? On the morning of postoperative day one, the patient was continued on 1 ounce of water or ice every half hour. During the day, the patient did fairly well, having some incisional pain, but able to ambulate adequately and to tolerate liquids well. ? Since the patient is doing well, we decided that the patient was ready to be discharged. The patient was given instructions to follow-up with me next week and to call my office for any fever over 101, persistent abdominal pain, nausea, vomiting, GERD, symptoms of DVT such as calf tenderness, or leg swelling, or pulmonary embolism such as chest pain or shortness of breath. The patient was also instructed to drink 40-60 ounces of liquids per day using the 1-ounce cups. The patient had been given prescriptions for Tylenol for pain, Zofran prn for nausea, and pantoprazole and carafate previously. The patient was encouraged to ambulate and use the incentive spirometer. The patient was allowed to shower, but no baths, and encouraged to stay active at home. All of these instructions were given to the patient personally. All questions were answered and the patient understood all instructions, the instructions were also given to the patient in print. Time Attestation Total time managing care of this patient today: 25 mintues. Discharge Coordination Time (in mins): 25 Quality: Safe Use of Opioids Does Pt have an Active Cancer Diagnosis on the Problem List?: No Quality: Stroke Does the patient have a stroke diagnosis?: No Physical Exam Vital Signs: Vital Signs: Last Vital Signs Temp 97.1 F 10/11/24 06:27 Pulse 67 10/11/24 06:27 Resp 16 10/11/24 06:27 BP 123/80 10/11/24 06:27 Pulse Ox 98 10/11/24 06:27 O2 Del Method Room Air 10/11/24 06:27 BMI result Body Mass Index 24.3 DS: Data Data Completed and Pending Labs on day of discharge: Laboratory Results - last 24 hr 10/05/24 11:22 Vitamin A 46 Discharge Plan Discharge Anticipated Discharge Date/Time: 10/12/24 10:00 Patient Disposition: Home, Self-Care Discharge Diagnosis: s/p laparoscopic repair of diaphragmatic hernia Referrals: Thea Navas MD [Primary Care Provider, Internal Medicine] - 1 Week Discharge Medications: Continued atorvastatin 20 mg tablet 20 mg PO BEDTIME Qty: 90 3RF omeprazole 20 mg capsule,delayed release(DR/EC) 20 mg PO BID 90 Days Qty: 180 1RF ondansetron 4 mg tablet,disintegrating 4 mg PO Q12H PRN (Reason: nausea and vomiting) multivitamin Tablet 1 tab PO QAM latanoprost 0.005 % drops 1 drp ophthalmic (eye) BEDTIME dorzolamide-timolol 22.3-6.8 mg/mL drops 1 drp ophthalmic (eye) BID sucralfate 100 mg/mL suspension 10 ml PO Q6H Qty: 600 2RF Held olmesartan 40 mg tablet 40 mg PO QAM Hold Instructions: Resume on 10/13/24. Check your blood pressure every morning as soon as you wake up and send it to Dr. Sandoval. Do no take the blood pressure medication if the blood pressure is below 120/70. Wait every day to hear back from Dr. Sandoval before you take the medication. Discharge Orders: Discharge Order (Routine); Ordered 10/12/24 Ordered By: Timothy Sandoval Activity on Discharge: No heavy lifting Stand Alone Forms: Patient Portal Discharge page Print Language: Bur[place]ian Care Plan Goals: improved gerd Health Concerns: gerd, esophageal ulcerations in the past Plan of Treatment: No tub baths, sex or returning to work until discussed at first post op appointment. No exercise, alcohol, tobacco or illegal drug use. Continue to use incentive spirometer hourly while awake. Walk in home for 5- 10 minutes every 2 hours during the first week. Follow all instructions in the bariatric handbook and call with any questions.Discharge Instructions 1. Please call your doctor or come back to the emergency room should any new symptoms arise. 2. You will receive a courtesy call from [facility] 24-48 hours after discharge. 3. Activity: abstain from alcohol, practice limited stair climbing, no bending, no driving, no exercise, no illicit substances, no lifting, no sex, no tub bath, no work. 4. Diet: continue as discussed with Dr. Sandoval. 5. Dressing Change/Wound Care: Your incision is covered by clear bandages and guaze underneath. If the area is tender, you may apply an ice pack for short intervals (no more than 20 minutes on, followed by at least 20 minutes off). Do not apply heat. Do not use creams, lotions, or topical antibiotics unless instructed to do so by your surgeon. These can cause infection or allergic reaction. 6. Call your doctor if: - Your temperature exceeds 101.5 F - You experience excessive pain or swelling - You have an unexpected reaction to medication - You have excessive bleeding - You experience continued vomiting/nausea - Your incision begins to separate - Your incision shows signs of infection such as increased redness, swelling, excessive pain, heat, or drainage (light blood or clear fluid is normal) 7. General instructions: No lifting greater than 5 lbs for 1 week and not more than 20lbs the next 3?weeks. No driving until seen at the office in 5-7 days after surgery. If you do not move your bowels in the next 2 days, please tell?Dr. Sandoval. Please walk around your home every hour or two to prevent blood clots from forming in your legs. You do not need to wake from sleeping to walk. Please sleep in a bed or couch to prevent kinking at the hips and knees. Please take your incentive spirometer (your lung safety clothing and equipment developer) home with you and use it for the next few days to prevent pneumonia. You may shower, no hot tubs, baths or swimming pools.?Please follow the post op diet instructions you are?given by Dr Sandoval? and text me daily at 5-6pm for an update.?If you have any issues or concerns or questions please communicate this to him via text.? The Celebrate shakes have all of the bariatric vitamins you need if you consume these shakes. If you are drinking other protein shakes, you will need to purchase the Celebrate multivitamins and calcium that are available in the hospital gift shop on the first floor of the [facility].??Do not take anything without first discussing with Dr Sandoval. Please make sure you are consuming at least 40 ounces of fluids per day starting the?day AFTER your discharge from the hospital. Always drink 1-2 ml per minute using the 5ml?syringe. If you drink faster you may experience?bloating,?gas pain, burping, nausea or heartburn. In that case please slow down your pace and use the syringe to?understand better the?proper?pace and volume of drinking. Do not hesitate to contact the office with any questions at . The patient's medical history has been reviewed and they are considered low risk for post op DVT and therefore DVT prophylaxis is not considered necessary. Travel after surgery was reviewed. The patient has not disclosed any travel plans during the first 30 days after surgery and they have been advised that within the first 30 days after surgery any bus, plane, train or car travel over 2 hours in duration is contraindicated due to the possibility of developing blood clots from immobility. Any travel, needs to include periods of ambulation of 10 minutes in duration every 2 hours.? The patient was instructed to discuss any plans for travel during this period with their bariatric surgeon. Assessment: stable s/p laparoscopic repair of diaphragmatic hernia Discharge Date/Time: 10/12/24 09:44
[2024-10-11 12:52] LABS: Hematocrit 37.2 % (42.0-52.0); Hemoglobin 12.9 g/dl (14.0-18.0)
[2024-10-11] MEDS: Lactated Ringers 1,000 ML 100 ML IVCONT ×2 (13:00→22:33)
[2024-10-11 13:12] LABS: Anion Gap 13 (12-20); Blood Urea Nitrogen 22 mg/dL (9-16); Calcium 9.1 mg/dL (8.4-10.2); Carbon Dioxide 24 mmol/L (22-29); Chloride 105 mmol/L (96-108); Creatinine Clr Calc Pharmacy 52.6; Estimated Glomerular Filt Rate > 60; Potassium 4.3 mmol/L (3.3-5.1); Sodium 138 mmol/L (135-145)
[2024-10-11] MEDS: Dorzolamide/Timolo 2.23%/0.68% 10 ML DRBTL 1 DROP EYE-BOTH (21:12)
[2024-10-11] MEDS: Latanoprost 0.005 % Ophth Sol 2.5 ML DROPS 1 DROP EYE-BOTH (21:12)
[2024-10-12 03:22] VITALS: BP 101/53; PULSE 78; RESP 18; TEMP 36.7; O2SAT 94
[2024-10-12 06:25] LABS: MANUAL DIFF FLAG NO
[2024-10-12 06:44] LABS: Hematocrit 33.9 % (42.0-52.0); Hemoglobin 11.9 g/dl (14.0-18.0); Imm Gran Abs Auto 0.07 X10*3/uL (0.00-0.03); Imm Gran Pct Auto 0.5 % (0.0-0.4); Lymphocytes Absolute Auto 0.8 X10*3/uL (1.2-4.9); Mean Corpuscular HGB Conc 35.1 g/dl (31.0-36.0); Mean Corpuscular Hemoglobin 33.6 pg (27.0-33.0); Mean Corpuscular Volume 95.8 fL (80.0-98.0); NRBC Abs Auto 0.000 X10*3/uL (0.0-0.012); NRBC Pct Auto 0.0 /100WBC (0.0-0.2); Platelet Count 213 X10*3/uL (160-400); Red Blood Count 3.54 X10*6/uL (4.60-5.80); White Blood Count 14.9 X10*3/uL (4.8-10.8)
[2024-10-12 06:47] LABS: Anion Gap 15 (12-20); Blood Urea Nitrogen 26 mg/dL (9-16); Calcium 8.4 mg/dL (8.4-10.2); Carbon Dioxide 22 mmol/L (22-29); Chloride 105 mmol/L (96-108); Creatinine Clr Calc Pharmacy 56.1; Estimated Glomerular Filt Rate > 60; Potassium 4.4 mmol/L (3.3-5.1); Sodium 138 mmol/L (135-145)
[2024-10-12 07:37] VITALS: BP 112/67; PULSE 78; RESP 18; TEMP 36.7; O2SAT 94
--- NOTE | 2024-10-12 08:38 | HO.POSTANES ---
Post Anesthesia Evaluation Post Anesthesia Evaluation Date of Service: 10/12/24 Vital Signs: Vital Signs Temp Pulse Resp BP Pulse Ox O2 Del Method 10/12/24 07:37 98.1 F 78 18 112/67 94 Room Air 10/12/24 03:22 98.0 F 78 18 101/53 L 94 Room Air 10/11/24 23:25 97.9 F 81 18 100/48 L 97 Room Air Anesthesia: General Mental Status: Awake Pain Control: Satisfactory Nausea/Vomiting: None Hydration: Adequate Anesthesia-Related Issues: No Anes. Related Issues
--- NOTE | 2024-10-12 08:55 | MHC.CM.PN ---
pt dscd home self care to transport prior rto being seen by cm
== END 2024-10-12 09:44 | disposition home or self-care (01) | DRG 328 ==
LOC: HO.SSSA 06:08 → HO.S3 11:34
PROVIDERS: Physician Assistant Surgical; Admitting Provider Surgery; PCP Internal Medicine; Visit Provider Surgery
PROC: 0BQT4ZZ Repair Diaphragm, Percutaneous Endoscopic Approach (ICD-10-PCS; CPT 43281; principal; 2024-10-11 07:30)
DX: K44.0 Diaphragmatic hernia with obstruction, without gangrene (principal); K66.0 Peritoneal adhesions (postprocedural) (postinfection); I10 Essential (primary) hypertension; E78.5 Hyperlipidemia, unspecified; K21.9 Gastro-esophageal reflux disease without esophagitis; Z79.899 Other long term (current) drug therapy
CPT/HCPCS: 43281; 43659; 36415; 80048; 80053; 80061; 82306; 82607; 82728; 83036; 83525; 83540; 84425; 84443; 84590; 84630; 85014; 85018; 85025; 85610; 85730; 86140; 86850; 86900; 86901; 99221; A4649; C9145; J0131; J0690; J1100; J2003; J2250; J2371; J2405; J2470; J2704; J2795; J3010; J7120

== ENCOUNTER → 2024-10-11 06:04 | Outpatient (BNV) | payer MEDICARE, SELFPAY | PROVIDERS: Admitting Provider Surgery; PCP Internal Medicine; Visit Provider Surgery | DX: K44.0 Diaphragmatic hernia with obstruction, without gangrene (principal) | CPT/HCPCS: 43281; 99024; 99499 ==

== ENCOUNTER 2024-10-20 13:15 | Outpatient (AMB) | payer MEDICARE, SELFPAY ==
--- NOTE | 2024-10-20 13:36 | A.OFFVIS_ITS ---
VS Expanded 10/20/24 13:47 BP 99/65 Blood Pressure Location Rt brachial Blood Pressure Position Sitting Pulse 102 H Pulse Source Pulse Oximeter Temp 95.8 F L Temperature Source Temporal Artery Scan Pulse Oximetry 97 Oxygen Delivery Method Room Air Height 5 ft 9 in Weight 160 lb 6.4 oz BMI 23.7 Body Fat % 23.4 Body Fat Mass 37.4 Fat Free Mass 122.8 Visceral Fat Rating 15.0 Body Water % 50.6 Body Water Mass 81.2 Muscle Mass/Score 116.6 Basal Metabolic Rate/Score 1,594 Intake Visit Reasons: OV PO Paraesophageal Hernia 10/11/24 Allergies No Known Allergies Allergy (Verified 10/20/24 13:43) Medication List - Last Reconciled 10/20/24 by JOHN Prescott atorvastatin 20 mg PO BEDTIME dorzolamide-timolol 22.3-6.8 mg/mL 1 drp ophthalmic (eye) BID latanoprost 0.005% 1 drp ophthalmic (eye) BEDTIME multivitamin 1 tab PO QAM olmesartan 40 mg PO QAM Held on 10/12/24. Instructions: Resume on 10/13/24. Check your blood pressure every morning as soon as you wake up and send it to Dr. Sandoval. Do no take the blood pressure medication if the blood pressure is below 120/70. Wait every day to hear back from Dr. Sandoval before you take the medication. omeprazole 20 mg PO BID 90 days sucralfate 10 mL PO Q6H HPI Comments Details: Patient is a pleasant 79-year-old male, status post hiatal hernia repair on 10/11/2024. Weight today is 160.4 lb with a BMI of 23.7. He is following his meal plan: Celebrate rebuild 1 scoop at 8-10, 2-4, 7-9 Celebrate protein bar at 11-1 3 forks eggs or cottage cheese or yogurt at 6 No complaints of pain or reflux. [facility] Medical History (Updated 10/20/24 @ 00:00 by Kemar Amaro) Personal history of colonic polyps Ulcer, esophagus Kidney cysts Positive colorectal cancer screening using Cologuard test Renal cyst Vitamin B 12 deficiency Hyperlipidemia HTN (hypertension) Surgical History Hx of bilateral cataract extraction Hx of cornea transplant Hx of right inguinal hernia repair Hx of left inguinal hernia repair Hx of colonoscopy (06/09/24) History of esophagogastroduodenoscopy (EGD) (06/09/24) Family History Father Hodgkin disease Mother No problems noted. 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, friend in [facility] Housing: House Are you a primary day care attendant to a significant other at home: No Do you presently have visiting nurse or other home services: No Alcohol intake: current Alcohol intake frequency: a few times a week Patient Tobacco Use Status: Never used Tobacco e-Cigarette/Vaping Use: Never Used service: No Current occupational status: retired Cognitive needs: No Hearing needs: No Vision needs: No Physical Exam GI Inspection: Yes incision (Clean, dry, intact.) Assessment & Plan Assessment & Plan (1) Status post repair of paraesophageal diaphragmatic hernia: Code(s): Z98.890 - Other specified postprocedural states; Z87.19 - Personal history of other diseases of the digestive system Category: Surgical Plan: Overall, patient is doing excellent. He reports that with some weight loss since surgery, he no longer has any right hip pain. He denies any reflux. He is tolerating his meal plan. He will continue to communicate with Dr. Sandoval. We will have him return to clinic in 4-6 weeks.
[2024-10-20 13:47] VITALS: BP 99/65; PULSE 102; TEMP 35.4; O2SAT 97; BMI 23.7
== END 2024-10-20 13:58 | disposition home or self-care (01) ==
LOC: HO.HBS 13:16
PROVIDERS: PCP Internal Medicine; Visit Provider Physician Assistant Surgical
DX: Z98.890 Other specified postprocedural states (principal); Z87.19 Personal history of other diseases of the digestive system
CPT/HCPCS: 99024

== ENCOUNTER → 2024-10-20 13:15 | Outpatient (BNVA) | payer MEDICARE, SELFPAY | PROVIDERS: PCP Internal Medicine; Visit Provider Physician Assistant Surgical | DX: Z98.890 Other specified postprocedural states (principal); Z87.19 Personal history of other diseases of the digestive system | CPT/HCPCS: 99212 ==